=== PATIENT | male | born 1955 | race Caucasian/White ===

== ENCOUNTER → 2020-09-05 10:05 | Outpatient (BNVA) | payer SELFPAY | PROVIDERS: Family Provider Nurse Practitioner Family; PCP Nurse Practitioner Family; Visit Provider Family Medicine | DX: I10 Essential (primary) hypertension (principal); H61.21 Impacted cerumen, right ear; E11.59 Type 2 diabetes mellitus with other circulatory complications; E78.2 Mixed hyperlipidemia; I73.9 Peripheral vascular disease, unspecified; Z72.0 Tobacco use; Z53.20 Procedure and treatment not carried out because of patient's decision for unspecified reasons | CPT/HCPCS: 80053; 80061; 83036 ==

== ENCOUNTER → 2021-03-12 11:06 | Outpatient (BNVA) | payer SELFPAY | PROVIDERS: Family Provider Nurse Practitioner Family; PCP Nurse Practitioner Family; Visit Provider Family Medicine | DX: E11.59 Type 2 diabetes mellitus with other circulatory complications (principal); I10 Essential (primary) hypertension; R60.0 Localized edema; E78.5 Hyperlipidemia, unspecified; M54.42 Lumbago with sciatica, left side; M54.41 Lumbago with sciatica, right side; E78.2 Mixed hyperlipidemia; I50.9 Heart failure, unspecified | CPT/HCPCS: 80048; 83036 ==

== ENCOUNTER → 2021-09-13 10:38 | Outpatient (BNVA) | payer MEDICARE, SELFPAY | PROVIDERS: Family Provider Nurse Practitioner Family; PCP Nurse Practitioner Family; Visit Provider Family Medicine | DX: E78.2 Mixed hyperlipidemia (principal); E11.59 Type 2 diabetes mellitus with other circulatory complications; I10 Essential (primary) hypertension | CPT/HCPCS: 80048; 80061; 83036 ==

== ENCOUNTER → 2022-03-28 09:29 | Outpatient (BNVA) | payer MEDICARE, MEDICAID, SELFPAY | PROVIDERS: Family Provider Nurse Practitioner Family; PCP Family Medicine; Visit Provider Family Medicine | DX: I10 Essential (primary) hypertension (principal); E11.9 Type 2 diabetes mellitus without complications; R60.0 Localized edema; E78.5 Hyperlipidemia, unspecified; J41.0 Simple chronic bronchitis; E11.59 Type 2 diabetes mellitus with other circulatory complications; I50.9 Heart failure, unspecified; Z72.0 Tobacco use; B07.0 Plantar wart; K02.9 Dental caries, unspecified | CPT/HCPCS: 80053; 83036 ==

== ENCOUNTER → 2022-09-18 09:08 | Outpatient (BNVA) | payer MEDICARE, MEDICAID, SELFPAY | PROVIDERS: Family Provider Nurse Practitioner Family; PCP Family Medicine; Visit Provider Family Medicine | DX: I10 Essential (primary) hypertension (principal); J41.0 Simple chronic bronchitis; R60.0 Localized edema; E78.5 Hyperlipidemia, unspecified; E11.9 Type 2 diabetes mellitus without complications; E78.2 Mixed hyperlipidemia; E11.59 Type 2 diabetes mellitus with other circulatory complications; I50.9 Heart failure, unspecified; Z72.0 Tobacco use | CPT/HCPCS: 80053; 80061; 83036 ==

== ENCOUNTER → 2023-03-18 10:05 | Outpatient (BNVA) | payer MEDICARE, MEDICAID, SELFPAY | PROVIDERS: Family Provider Nurse Practitioner Family; PCP Family Medicine; Visit Provider Family Medicine | DX: I10 Essential (primary) hypertension (principal); J41.0 Simple chronic bronchitis; E78.5 Hyperlipidemia, unspecified; R60.0 Localized edema; E11.9 Type 2 diabetes mellitus without complications; E11.59 Type 2 diabetes mellitus with other circulatory complications; I50.9 Heart failure, unspecified; E78.2 Mixed hyperlipidemia; Z53.20 Procedure and treatment not carried out because of patient's decision for unspecified reasons | CPT/HCPCS: 80053; 83036 ==

== ENCOUNTER → 2023-09-16 10:09 | Outpatient (BNVA) | payer OTHER, MEDICAID, SELFPAY | PROVIDERS: Family Provider Nurse Practitioner Family; PCP Family Medicine; Visit Provider Family Medicine | DX: I10 Essential (primary) hypertension (principal); J41.0 Simple chronic bronchitis; E11.9 Type 2 diabetes mellitus without complications; E78.5 Hyperlipidemia, unspecified; I50.9 Heart failure, unspecified; E11.59 Type 2 diabetes mellitus with other circulatory complications; J44.9 Chronic obstructive pulmonary disease, unspecified | CPT/HCPCS: 80053; 80061; 83036; 85025 ==

== ENCOUNTER 2023-09-22 06:45 | Outpatient (CLI) | payer MEDICARE, MEDICAID, SELFPAY ==
--- NOTE | 2023-09-22 07:00 | CT_ITS ---
WS: [id number] CT FACIAL BONES HISTORY: R68.84 - Jaw pain TECHNIQUE: Images obtained from the supraorbital location through the mandible. Soft tissue and bone windows are reviewed. Coronal and sagittal reformats have also been submitted. DLP: 681.[address] scans at [facility] use at least one of these dose optimization techniques: automated e xposure control; mA and/or kV adjustment per patient size (includes targeted exams where dose is matc hed to clinical indication); or iterative reconstruction. COMPARISON: None available. CT of the facial bones was performed without IV contrast. There is a large destructive soft tissue mass centered in the RIGHT pharyngeal mucosal space with ext ension into the RIGHT parapharyngeal space and the RIGHT it infrastructure consultant space. Suspect mass extends to th e prevertebral space also on the RIGHT. Mass extends to the RIGHT it infrastructure consultant space to involve the med ial pterygoid muscle. There is loss of the normal fat planes in the parapharyngeal space and the toru s tubarius. Mass extends across the midline of the nasopharynx and into the RIGHT pterygopalatine fos sa. There is osseous destruction of the RIGHT pterygoid plates and the posterior RIGHT maxillary sinu s. There is soft tissue extension into the posterior RIGHT maxillary sinus. Soft tissue tumor extends along the RIGHT eustachian tube to the middle ear. There is increased soft tissue extensively throug hout the RIGHT mastoid air cells and extending into the inner ear surrounding the ossicles. Tegmen ty mpani appears still intact. There is osseous destruction involving several bones in the RIGHT skull base including the posterior wall of the maxillary sinus, the pterygoid plates and possibly the chino of the RIGHT carotid canal. Abnormal clivus. As per history there has been a recent tooth extraction. There is a small amount of air adjacent to t he RIGHT mandible at the site of the tooth extraction. There is mild osteolysis of the RIGHT mandible which is probably from dental caries. There is extensive dental caries in the maxilla, greater on th e LEFT. There is a focal collection of air on the LEFT which may be the site of the recent tooth extr action. There is loss of bone in the mandible and maxilla. There is extensive, near contiguous dense calcification along the cervical carotid arteries. Dense at herosclerotic plaque continues into the carotid cavernous sinuses and the supraclinoid carotid arteri es. IMPRESSION: 1. Large destructive soft tissue process centered in the RIGHT [place] tonsillar bed. Mass extensiv corey throughout the RIGHT parapharyngeal space extending into the it infrastructure consultant space and probably the ca rotid space. Mass extends into the RIGHT eustachian tube at the RIGHT pterygopalatine fossa. This celsa dy was performed without IV contrast. Favor neoplasm as a possible etiology. Obviously infection is n ot excluded. 2. There is significant osseous destruction involving the posterior wall of the RIGHT maxillary sinu s, pterygoid plates, the clivus and probably the carotid canal. 3. Extensive bilateral dental caries greatest involving the LEFT maxilla. 4. Severe diffuse carotid atherosclerosis. Notified Danielle Maldonado MD at 09/22/2023 8:[address] Maldonado is not in the office. I did leave a me ssage for this report to be reviewed by the nurse practitioner, Marivel Hopkins. Patient needs to be evaluated by ENT. Neck CT with IV contrast would also be beneficial to evaluate extent of disease and possibly differentiate neoplasm versus infection and for adenopathy.
== END 2023-09-22 06:46 | disposition home or self-care (01) ==
LOC: RAD 06:49
PROVIDERS: Family Provider Nurse Practitioner Family; PCP Family Medicine; Visit Provider Family Medicine
DX: R93.89 Abnormal findings on diagnostic imaging of other specified body structures (principal); R93.0 Abnormal findings on diagnostic imaging of skull and head, not elsewhere classified; R68.84 Jaw pain; K08.89 Other specified disorders of teeth and supporting structures; M89.8X8 Other specified disorders of bone, other site; K02.9 Dental caries, unspecified
CPT/HCPCS: 70486

== ENCOUNTER 2023-09-24 16:19 | Emergency (ER) | payer MEDICARE, MEDICAID, SELFPAY ==
[2023-09-24 16:43] VITALS: BP 102/65; PULSE 109; RESP 18; TEMP 36.6; O2SAT 100
--- NOTE | 2023-09-24 19:24 | W.ED.GENADLT ---
HPI - General Adult General: Chief complaint: Eye Problems Stated complaint: headache Time Seen by Provider: 09/24/23 19:15 History of Present Illness: Patient presents to the ER with complaints of cheek pain and double vision. Patient is also states in the last month he has had dental pain in all of his upper teeth pulled, chronic headache and right ear pain that has not went away. Patient saw his PCP and ordered noncontrasted CT scan that he had done. He does not know the results. Patient says he just keeps on getting worse. Review of Systems General: Reports: 10 or more systems reviewed and unremarkable except in HPI and below PFSH ED PFSH: Medical History (Updated 10/02/23 @ 00:01 by NABIL Handy) Hypertension Hyperlipidemia Refuses statin therapy. COPD (chronic obstructive pulmonary disease) Type 2 diabetes mellitus Surgical History (Updated 09/29/23 @ 11:49 by Jimmie Loera MD) History of dental surgery No pertinent past surgical history Family History Father CAD (coronary artery disease) Chronic kidney disease (CKD) Diabetes Mother Hypertension Stroke Heart attack Cancer breast Brother Cancer Both brothers have passed from cancer Social History Smoking and tobacco/nicotine status: current every day tobacco/nicotine user cigarettes Packs smoked per day: 2 Quit status (tobacco/nicotine): considering quitting Alcohol intake: current Alcohol intake frequency: 0-2 Drinks per Day Alcohol type: beer Substance/Drug Use: never Physical Exam Const: COMMON NORMALS: no acute distress, average body habitus, patient oriented x3, no limitations, healthy appearing, alert and well nourished HENMT: COMMON NORMALS: normocephalic, atraumatic, hearing grossly normal bilaterally, external ears normal, Normal external nose present, moist oral mucous membranes and oropharynx normal HEAD & SCALP: normocephalic and atraumatic NOSE: Normal external nose present EXTERNAL EAR: Yes external ears normal Neck/C-Spine: COMMON NORMALS: no JVD Chest: COMMONS NORMALS: normal inspection of the chest and normal palpation of entire chest wall Resp: COMMON NORMALS: normal respiratory effort, No retractions, No use of accessory muscles and clear to auscultation bilaterally AUSCULTATION: clear to auscultation bilaterally Cardio: COMMON NORMALS: no JVD, regular rate, regular rhythm, S1 normal heart sound present, S2 normal heart sound present, No gallops present (Cardio), No clicks present (Cardio), No murmurs present (Cardio) and No rub (Cardio) RATE: regular rate RHYTHM: regular rhythm HEART SOUNDS: S1 normal heart sound present and S2 normal heart sound present GI: COMMON NORMALS: Normal to inspection, nondistended, normoactive bowel sounds present, Soft to palpation, non-tender, No hepatosplenomegaly present and no masses PALPATION: Yes Soft to palpation and Yes No hepatosplenomegaly present Neuro: COMMON NORMALS: patient oriented x3 SENSORIUM/ORIENTATION: Yes alert Course Vital Signs: Vital signs: Vital Signs Temperature 97.8 F 09/24/23 22:11 Pulse Rate 91 09/24/23 22:11 Respiratory Rate 16 09/24/23 22:11 Blood Pressure 104/72 09/24/23 22:11 Pulse Oximetry 99 09/24/23 22:11 Oxygen Delivery Me thod Room Air 09/24/23 22:05 MDM - General Adult Medical Decision Making Lab work was obtained as well as a facial CT with contrast. Showed an aggressive infiltrative tumor. These results was discussed with the patient. Neurosurgery Dr. Jeronimo was consulted who looked at the images to the cloud he says it is probably an aggressive benign tumor and does not need transferred at this moment but he will have him see Dr. Oakes and arrange for an MRI. The number is [phone] we will give this number to the patient and have him call but Dr. Jeronimo said he is going to try to arrange it himself. She will be discharged home Lab Data 09/24/23 19:26 09/24/23 19:[address] 09/24/23 19:25 IMPRESSION: 1. 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 MRI of the face/neck with/without contrast and neurosurgical evaluation is recommended. 2. Mild right-sided proptosis. 3. Effacement of the right mastoid air cells and middle ear secondary to obstruction of the eustachian tube. 4. Developmentally diminutive right internal jugular vein with a short segment of absence of opacification just proximal to the jugular foramen. No definitive evidence of thrombosis, though evaluation of which at time of MRI is recommended. The findings were verbally communicated by telephone with Dr. Tang at 8:50 PM CDT on 09/24/2023. Laboratory Results WBC 10.97 10^3/uL (3.29-11.43) 09/24/23 19: RBC 4.50 10^6/uL (3.85-5.65) 09/24/23 19: Hgb 14.00 g/dL (11.27-16.99) 09/24/23 19: Hct 40.7 % (37-53) 09/24/23: MCV 90.4 fl (82-101) 09/24/23: MCH 31.1 pg (27-33) 09/24/23: MCHC 34.4 g/dL (30-55) 09/24/23: RDW 13.1 % (12.1-15.1) 09/24/23: Plt Count 288 10^3/cmm (157-399) 09/24/23: MPV 9.0 fL (7.4-10.4) 09/24/23: Neut % (Auto) 80.6 % 09/24/23: Lymph % (Auto) 10.7 % 09/24/23: [place] % (Auto) 7.5 % 09/24/23: Eos % (Auto) 0.2 % 09/24/23: Baso % (Auto) 0.5 % 09/24/23: Neut # (Auto) 8.85 10^3/uL (1.8-7.7) H 09/24/23: Lymph # (Auto) 1.2 10^3/uL (0.8-4.8) 09/24/23: [place] # (Auto) 0.8 10^3/uL (0.2-0.9) 09/24/23 19: Eos # (Auto) 0.0 10^3/uL (0.0-0.8) 09/24/23: Baso # (Auto) 0.1 10^3/uL (0.0-0.1) 09/24/23 19:26 Nucleated RBC % (auto) 0 % 09/24/23 19:26 Nucleated RBCs # 0.0 /100WBC 09/24/23 19:26 Sodium 131 mmol/L (136-145) L 09/24/23 19:26 Potassium 4.5 mmol/L (3.5-5.1) 09/24/23 19:26 Chloride 91 mmol/L (98-107) L 09/24/23 19:26 Carbon Dioxide 27 mmol/L (22-29) 09/24/23 19:26 Anion Gap 17.5 (5-19) 09/24/23 19:26 BUN 9 mg/dL (8-23) 09/24/23 19:26 Creatinine 0.8 mg/dL (0.7-1.2) 09/24/23 19:26 GFR Calculation 96.4 mL/min (90-130) 09/24/23 19:26 Glucose 170 mg/dL (65-115) H 09/24/23 19:26 Calculated Osmolality 275 mOsm/kg (285-295) L 09/24/23 19:26 Calcium 9.7 mg/dL (8.5-10.5) 09/24/23 19:26 Total Bilirubin 0.5 mg/dL (0.15-1.2) 09/24/23 19:26 AST 9 U/L (0-40) 09/24/23 19:26 ALT 9 U/L (0-41) 09/24/23 19:26 Alkaline Phosphatase 86 U/L (40-130) 09/24/23 19:26 Total Protein 6.9 g/dL (6.6-8.7) 09/24/23 19:26 Albumin 4.0 g/dL (3.5-5.2) 09/24/23 19:26 Globulin 2.9 g/dL (1.3-4.6) 09/24/23 19:26 All radiology interpretation(s) finalized by discharge Discharge Plan Discharge Patient Disposition: Home Clinical Impression: Facial mass, Ocular proptosis, Headache Condition: Stable Prescriptions: No Action hydralazine 10 mg tablet 10 mg PO BID PRN (Reason: very high blood pressure) Qty: 20 0RF Rx Instructions: >160/>100 for after 15 minutes rest aspirin 325 mg tablet 325 mg PO DAILY amlodipine 10 mg tablet 10 mg PO DAILY 90 Days Qty: 90 1RF albuterol sulfate [ProAir HFA] 90 mcg/actuation HFA aerosol inhaler 2 puff inhalation QID PRN (Reason: shortness of breath or wheezing) 30 Days Qty: 18 5RF clonidine HCl 0.1 mg tablet 0.1 mg PO BID 90 Days Qty: 180 1RF furosemide 20 mg tablet 20 mg PO DAILY 90 Days Qty: 90 1RF metformin 1,000 mg tablet 1,000 mg PO BID 90 Days Qty: 180 1RF telmisartan 80 mg tablet 80 mg PO DAILY 90 Days Qty: 90 1RF spironolactone 25 mg tablet 50 mg PO DAILY 90 Days Qty: 180 1RF metoprolol tartrate 50 mg tablet 25 mg PO BID 90 Days Qty: 90 1RF fenofibrate nanocrystallized 48 mg tablet 48 mg PO DAILY 90 Days Qty: 90 1RF amitriptyline 25 mg tablet 25 mg PO .at bedtime 30 Days Qty: 30 2RF Ensure Complete 0.1 gram- 1.18 kcal/mL liquid 1 ea PO DAILY 30 Days Qty: 8880 11RF Rx Instructions: 1 can/bottle daily may change per insurance brand/type fluticasone propionate 50 mcg/actuation spray,suspension 1 spray intranasal DAILY PRN (Reason: allergy symptoms) Qty: 16 1RF Rx Instructions: administer into each nostril Discharge Orders: Discharge ED (Routine); Ordered 09/24/23 Ordered By: Enrrique Tang Referrals: Danielle Maldonado MD [Primary Care Provider] - Patient Instructions: Acute Headache (DC), Diplopia (ED) Activity Restrictions/Additional Instructions: Neurosurgeon at [facility] Dr. Jeronimo was consulted and he looked at your images through the computer system. His office will be calling you tomorrow to arrange an appointment for an MRI and to see a Dr. Oakes. If you have not heard from them later on the day please call them their number is area code [phone]. Coding Level of Care Code ED [employer] for [facility] [employer]
--- NOTE | 2023-09-24 19:25 | CTR_ITS ---
PROCEDURE INFORMATION: Exam: CT Maxillofacial With Contrast Exam date and time: 09/24/2023 8:00 PM Age: 68 years old Clinical indication: Face pain and other: Diplopia; Prior surgery; Surgery date: <1 month; Surgery type: Teeth pulled on right side; Additional info: Diplopia, right sided facial mass, abnormal CT TECHNIQUE: Imaging protocol: Computed tomography of the face with contrast. Radiation optimization: All CT scans at this facility use at least one of these dose optimization techniques: automated exposure control; mA and/or kV adjustment per patient size (includes targeted exams where dose is matched to clinical indication); or iterative reconstruction. Contrast material: OMNI 350; Contrast volume: 100 ml; Contrast route: INTRAVENOUS (IV); COMPARISON: CT facial bones wo con* [id number] 09/22/2023 6:06 AM RADIATION DOSE METRICS: Total DLP (mGy-cm): 714.64 FINDINGS: Soft tissues: Large infiltrative mass centered in the fossa Rosenmuller on the right with extension inferiorly into the region of the palatine tonsil and medial pterygoid muscle as well as superiorly into the region of the pterygoid plates, pterygopalatine fossa, carotid and hypoglossal canals. There is extension through the foramen ovale as well. There are destructive permeative changes of the skull base in this region including the body of the sphenoid, posterior wall of the right maxillary sinus, right-sided pterygoid plates and right lateral aspect of the basisphenoid. There appears to be extension into the posterior ethmoid air cells on the right as well. There is partial effacement of the nasopharynx. There is destruction of the inferior chino of the sphenoid sinuses with extension of mass into the sinuses as well as the posterior right maxillary sinus. There is extension into the right carotid canal and cavernous sinus (for example, image 61 of series 3). Orbital cavities: Bony orbits are intact. There is mild right-sided proptosis. The intraconal/extraconal fat, extraocular muscles and optic nerves are grossly unremarkable. Mastoid air cells: Effacement of the right mastoid air cells and middle ear secondary to obstruction of the eustachian tube. Lymph nodes: No evidence of adenopathy. Vasculature: The visualized carotid and vertebral arteries are patent. There is severe narrowing of the right cavernous internal carotid artery, possibly secondary to atherosclerotic plaque though involvement by the infiltrative mass is difficult to exclude. The vessels of the [id number]-[id number] are grossly patent. (image 66 of series 3). A extensive densely calcified atherosclerotic plaque of the carotid bulbs and proximal internal carotid arteries. There is approximately 60% narrowing of the proximal left internal carotid artery and 40% narrowing of the proximal left internal carotid artery. The visualized internal jugular veins grossly patent. The right internal jugular vein is developmentally diminutive and narrowed as it courses into the jugular foramen. No definitive evidence of thrombosis, though there is a short segment of absent opacification just proximal to the jugular foramen. CT/CT facial bones w con [id number] IMPRESSION: 1. 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 MRI of the face/neck with/without contrast and neurosurgical evaluation is recommended. 2. Mild right-sided proptosis. 3. Effacement of the right mastoid air cells and middle ear secondary to obstruction of the eustachian tube. 4. Developmentally diminutive right internal jugular vein with a short segment of absence of opacification just proximal to the jugular foramen. No definitive evidence of thrombosis, though evaluation of which at time of MRI is recommended. The findings were verbally communicated by telephone with Dr. Tang at 8:50 PM CDT on 09/24/2023.
[2023-09-24 19:36] LABS: Basophils # 0.1 10^3/uL (0.0-0.1); Basophils % 0.5 %; Eosinophils % 0.2 %; Hematocrit 40.7 % (37-53); Lymphocytes # 1.2 10^3/uL (0.8-4.8); Lymphocytes % 10.7 %; Mean Corpuscular HGB Conc 34.4 g/dL (30-55); Mean Corpuscular Hemoglobin 31.1 pg (27-33); Mean Corpuscular Volume 90.4 fl (82-101); Monocytes # 0.8 10^3/uL (0.2-0.9); Monocytes % 7.5 %; Neutrophils # 8.85 10^3/uL (1.8-7.7); Neutrophils % 80.6 %; Nucleated Red Blood Cells % 0 %; Platelet Count 288 10^3/cmm (157-399); Red Cell Distribution Width 13.1 % (12.1-15.1); White Blood Count 10.97 10^3/uL (3.29-11.43)
[2023-09-24] MEDS: metoclopramide 5 mg/mL SDV 2 mL 10 MG IVP (19:39)
[2023-09-24] MEDS: ondansetron 2 mg/ML SDV 2 mL 8 MG IVP (19:39)
[2023-09-24 19:52] LABS: Alanine Aminotransferase 9 U/L (0-41); Alkaline Phosphatase 86 U/L (40-130); Anion Gap 17.5 (5-19); Aspartate Amino Transferase 9 U/L (0-40); Blood Urea Nitrogen 9 mg/dL (8-23); Calcium 9.7 mg/dL (8.5-10.5); Carbon Dioxide 27 mmol/L (22-29); Chloride 91 mmol/L (98-107); Creatinine Clr Calc Pharmacy 88.9434; Globulin 2.9 g/dL (1.3-4.6); Glomerular Filtration Rate 96.4 mL/min (90-130); Glucose 170 mg/dL (65-115); Osmolality Calculated 275 mOsm/kg (285-295); Potassium 4.5 mmol/L (3.5-5.1); Sodium 131 mmol/L (136-145); Total Bilirubin 0.5 mg/dL (0.15-1.2); Total Protein 6.9 g/dL (6.6-8.7)
[2023-09-24] MEDS: iohexol 350 mg/mL 500 mL Btl (per mL) IV (20:06)
[2023-09-24 20:11] VITALS: PULSE 92; RESP 16; O2SAT 96
[2023-09-24 20:30] VITALS: BP 105/68; PULSE 94; RESP 16; O2SAT 98
[2023-09-24 22:05] VITALS: BP 104/72; PULSE 91; RESP 16; O2SAT 99
[2023-09-24] MEDS: ondansetron 2 mg/ML SDV 2 mL 4 MG IVP (22:07)
[2023-09-24] MEDS: morphine 4 mg/mL SDV 1 mL IVP (22:07)
[2023-09-24 22:11] VITALS: BP 104/72; PULSE 91; RESP 16; TEMP 36.6; O2SAT 99
== END 2023-09-24 22:12 | disposition home or self-care (01) ==
PROVIDERS: Emergency Provider Emergency Medicine; PCP Family Medicine
DX: R22.0 Localized swelling, mass and lump, head (principal); H05.20 Unspecified exophthalmos; R51.9 Headache, unspecified; Z79.82 Long term (current) use of aspirin; Z79.84 Long term (current) use of oral hypoglycemic drugs; I10 Essential (primary) hypertension; E78.5 Hyperlipidemia, unspecified; J44.9 Chronic obstructive pulmonary disease, unspecified; E11.9 Type 2 diabetes mellitus without complications; F17.210 Nicotine dependence, cigarettes, uncomplicated
CPT/HCPCS: 70487; 80053; 85025; 96374; 96375; 96376; 99285; J2270; J2405; J2765; Q9967

== ENCOUNTER → 2023-09-29 10:49 | Outpatient (BNVA) | payer MEDICARE, MEDICAID, SELFPAY | PROVIDERS: PCP Family Medicine; Visit Provider Otolaryngology | DX: J39.2 Other diseases of pharynx (principal); H05.20 Unspecified exophthalmos; R51.9 Headache, unspecified; G89.29 Other chronic pain | CPT/HCPCS: 99205 ==

== ENCOUNTER 2023-11-10 10:52 | Oncology outpatient (recurring) (ONCR) | payer MEDICARE, MEDICAID, SELFPAY ==
--- NOTE | 2023-10-22 15:16 | N.ONRAD NP_ITS ---
Radiation Oncology New Patient Visit Patient: Romain Montes MR#: [id number] : 1955 Age: 68 Sex: Male Dictated by: Dr. 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 He recounts how in May he began to have headaches on the right side of his head and in the jaw area. He said he felt like his teeth were hurting on the upper part. He visited with his dentist and his dentist felt that he had an actual infection in the teeth. He had the teeth pulled and dentures made but this did not result in any improvement in his pain. By mid August he was having some trouble with ill fitting dentures and some swallowing. He noticed he had a decrease in his sense of smell and increased congestion. Scans at that point in time showed a mass in the right Pharyngeal space which extended in the right director dental services and pterygoids as well as palatine fossa Meckel's cave and cavernous sinus. Is also noted to have right-sided neck node involved on the PET scan. Current Medications: Albuterol, amitriptyline, amlodipine, apixaban, aspirin, clonidine, fenofibrate, fluconazole, food supplement lactose reduced, Lasix, hydralazine, metformin, metoprolol, oxycodone, spironolactone, telmisartan Allergies: No Known Allergies Medical History: Tobacco use, diabetes, hypertension, congestive heart failure no history of collagen vascular disease hyperlipidemia. No previous radiation therapy. Surgical History: Teeth pulled on the upper maxillary on the right Family History: Mother had breast cancer. Both of his brothers have had cancer and have from their cancer Social History: Currently smokes 2 packs a day. Drinks daily beer Current Complaints / Review of Systems: . Currently has headache and pressure on the right side of his face Vital Signs: Performed on 10/22/2023 2:16 PM BMI - 22.476 kg/m2, Height - 69 in, Weight - 152.2 lbs, Temperature - 97.3 f, Pulse - 90 /min, Respiration - 18 /min, O2 Sat - 99 %, Pain - 0, Fatigue - 4 and BP - 147/ 78 mm(hg)(high/). Physical Exam: General patient is in no apparent distress today he is accompanied by his HEENT normocephalic atraumatic. Pupils appear to be equal at this time. His right eyelid does droop in comparison to the left. He has numbness across his right cheek. The right eye appears to be sunken in comparison to the left. His neck is supple without palpable cervical or supraclavicular adenopathy. His oral cavity did not reveal any lesions or ulcerations or thrush. Pulmonary: Respiratory rate is regular nonlabored Cardiovascular: Regular rate and rhythm Abdomen: Flat and nontender Extremities: No lower or upper extremity edema is noted Skin: Warm and dry without lesions or ulcerations Neurological: Jhoan syndrome noted as above. Alert and orient x 3. Patient is in a wheelchair but his gait is normal. He is in a wheelchair because of significant fatigue. Speech is intact Psych: Affect appropriate for current situation Performance Status: 80 Pathology: Squamous of carcinoma of the nasopharynx p16 positive Lab: Imaging: See HPI Impression: Stage T4 N1 squamous of carcinoma of the nasopharynx on the right Plan: At this time he has met with several physicians in [place]. He was referred here to discuss the radiation portion of his treatment. He is due to be seen by medical oncology in [place]. We talked about the typical course of combined modality therapy with weekly chemotherapy along with 7 weeks of radiation. We discussed the simulation process. I reviewed the daily treatment regiment. We discussed the risks and side effects both acute and long-term. At this point he still does not have an appointment to visit with the medical oncologist. Will have him return for simulation Friday of next week and should be ready to begin his treatments by Friday or next week. Will wait to hear from him or his in terms of his appointment in [place]. At this point all of their questions were answered and he was anxious to begin his treatments. Signed by: 10/22/2023 3:14:34 PM <<Signature on File>> Time spent with patient:60 Cc: Naila Edwards MD CPT Code: CPT Code:
--- NOTE | 2023-10-27 14:28 | ONCRAD EPV_ITS ---
Radiation Oncology Established Patient Visit Patient: Jyoti Hoyos [id number] : 1955> Age: 68> Sex: Male> Dictated by: Dr. Twyla Ang Date of Service: 10/27/2023 Referring Physician(s) : Diagnosis: C11.8 - Malignant neoplasm of overlapping sites of nasopharynx, Diagnosed 10/22/2023 (Active) Radiotherapy to Date: Simulation today Current History: Current Medications: Allergies: No Known Allergies Current Complaints / Review of Systems: . Patient's said he seemed like he was having more pain and she took him to the walk-in clinic. She has been giving him to Tylenol every 6 hours and an oxycodone every 6 hours as well. She is keeping a very good schedule on when she is giving him his medication. The walk-in clinic physician gave him a muscle relaxer which she has been giving to him 4 times a day. Since he started the muscle relaxer he has become less responsive and has gotten to where he really is unable to do much. She initially thought she was going have to put him in a group home. Vital Signs: Performed on 10/27/2023 2:11 PM BMI - 22.447 kg/m2, Height - 69 in, Weight - 152 lbs, Temperature - 97.3 f, Pulse - 92 /min, Respiration - 18 /min, O2 Sat - 96 %, Pain - 8, Fatigue - 0 and BP - 131/ 82 mm(hg). Physical Exam: General patient is basically asleep NEUROLOGIC: Continues to have numbness over the right side of his face. His right eye is slightly inferior and the eyelid is drooping. His sclera has become injected. Performance Status: 80 Lab: None pending. Pathology: Primary, c11.8 - malignant neoplasm of overlapping sites of nasopharynx, Diagnosed 10/22/2023 (active) . Imaging: See HPI Impression: Squamous cell carcinoma of the nasopharynx. Plan: I reviewed with her that his symptoms seem to have started or worsened when she started the muscle relaxer. I have asked him to discontinue this for now. I told her that I did not think it would add anything to his care or make him feel any better. We will go ahead and do the simulation today. He is anxious to get started as am I. Once we get his simulation done we will proceed with starting his treatment sometime this week. The cancer center in [place] is still trying to get additional medical records before they will even agree to see him. At this point with the delay that he has had and starting his treatment I do not feel like it is in his best interest to delay his treatment anymore waiting for chemotherapy to start. Will begin his treatments as soon as possible and try and get his disease under control and he can begin his chemotherapy next week or the week after Signed by: 10/27/2023 2:27:00 PM <<Signature on File>> Time spent with patient: CPT Code: CPT Code:
--- NOTE | 2023-11-03 15:13 | ONCRAD TMN_ITS ---
Radiation Oncology Weekly Treatment Management Patient: Romain Montes MR#: [id number] : 1955 Attending Physician: Dr. 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 ID: [id number], Energy: 6X, Dose/Fx (cGy): 200, #Fx: 2 35, Dose Correction (cGy): 0, Total Dose Delivered (cGy): 400, Start Date: 10/30/2023, Elapsed Days: 1 Reason for visit: The patient is being seen today as part of their regularly scheduled weekly on treatment visits to assess for acute toxicities from radiotherapy. Review of Systems: Patient has noticed no improvement after the first 2 treatments. His eyelid is now completely closed. He says that side of his face feels like cardboard. Vital Signs: Performed on 11/03/2023 2:34 PM BMI - 21.856 kg/m2, Height - 69 in, Weight - 148 lbs, Temperature - 97.6 f, Pulse - 88 /min, Respiration - 18 /min, O2 Sat - 98 %, Pain - 0, Fatigue - 5 and BP - 116/ 72 mm(hg). Physical Exam: On exam his skin is without changes. The right eyelid is closed. You can manually open it. The globe itself is quite injected. Imaging: Radiation therapy imaging related to accurate target localization (i.e. KV, MV and CBCT) was reviewed. Appropriate changes, if any, were made to ensure treatment accuracy. Plan: Will continue with his treatments as planned. He is going to [place] tomorrow after his radiation to undergo the initial consultation for medical oncology. Signed by: Dr. Twyla Ang 11/03/2023 3:12:31 PM
== END 2023-11-10 23:59 | disposition home or self-care (01) ==
PROVIDERS: PCP Family Medicine; Visit Provider Radiology Radiation Oncology
DX: Z51.0 Encounter for antineoplastic radiation therapy (principal); C11.8 Malignant neoplasm of overlapping sites of nasopharynx; F17.210 Nicotine dependence, cigarettes, uncomplicated
CPT/HCPCS: 77300; 77301; 77334; 77336; 77338; 77386; 77470; 99024; 99205

== ENCOUNTER 2023-11-11 10:31 | Oncology outpatient (recurring) (ONCR) | payer MEDICARE, MEDICAID, SELFPAY | END 2023-11-11 23:59 | disposition home or self-care (01) | PROVIDERS: PCP Family Medicine; Visit Provider Radiology Radiation Oncology | DX: Z51.0 Encounter for antineoplastic radiation therapy (principal); C11.8 Malignant neoplasm of overlapping sites of nasopharynx | CPT/HCPCS: 77386 ==

== ENCOUNTER 2023-12-03 07:49 | Oncology outpatient (recurring) (ONCR) | payer MEDICARE, MEDICAID, SELFPAY ==
--- NOTE | 2023-11-15 23:19 | ONCRAD TMN_ITS ---
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 ID: [id number], Energy: 6X, Dose/Fx (cGy): 200, #Fx: 35, Dose Correction (cGy): 0, Total Dose Delivered (cGy): 1,800, Start Date: 10/30/2023, Elapsed Days: 14 Reason for visit: The patient is being seen today as part of their regularly scheduled weekly on treatment visits to assess for acute toxicities from radiotherapy. Review of Systems: Doing better overall. Drooping eye lids which were present at dx now better. Chemo tolerance compromised by elevated BS to 500 . Now better with switch from Ensure to Gycerna. No pain noted. No N or V. Smoking only 1 cig a day. Previous tooth extractions still causing oral pain. Gargling with salt and soda. Appetite is ok. Vital Signs: Performed on 11/13/2023 11:00 AM BMI - 34.467 kg/m2 (high), Height - 69 in, Weight - 233.4 lbs, Temperature - 96 f, Pulse - 80 /min, Respiration - 16 /min, O2 Sat - 98 %, Pain - 0, Fatigue - 2 and BP - 102/ 65 mm(hg). Physical Exam: Imaging: Radiation therapy imaging related to accurate target localization (i.e. KV, MV and CBCT) was reviewed. Appropriate changes, if any, were made to ensure treatment accuracy. Plan: Good tolerance of treatment. Continue as planned. Signed by: Ronak Love 11/15/2023 11:18:24 PM Telemedicine Consent Patient seen today via Telemedicine by agreement and consent of patient. Telemedicine technology used during the visit include audio and, as available, review of images. This patient encounter is appropriate and reasonable under the circumstances given the patient???s particular presentation at this time. The patient has been advised of the potential risks and limitations of this mode of treatment (including but not limited to the absence of in-person examination) and has agreed to be treated in a remote fashion in spite of them. Any and all of the patient???s/patient???s family???s questions on this issue have been answered and I have made no promises or guarantees to the patient. The patient has also been advised to contact this office for worsening conditions or problems, and seek emergency medical treatment and/or call 911 if the patient deems either necessary.
--- NOTE | 2023-11-18 13:11 | ONCRAD TMN_ITS ---
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 ID: [id number], Energy: 6X, Dose/Fx (cGy): 200, #Fx: 12 / 35, Dose Correction (cGy): 0, Total Dose Delivered (cGy): 2,400, Start Date: 10/30/2023, Elapsed Days: 19 Reason for visit: The patient is being seen today as part of their regularly scheduled weekly on treatment visits to assess for acute toxicities from radiotherapy. Review of Systems: Right eye droop continues to improve. Now able to open eye well. No dizziness despite low BP seen here. Drinking fluids. Eats all food orally. No PEG. Some soreness in mouth. He was on amlodipine, metropolol and telmisartan before but is already off of telmisartan. Vital Signs: Performed on 11/18/2023 11:11 AM BMI - 22.594 kg/m2, Height - 69 in, Weight - 153 lbs, Temperature - 96.6 f, Pulse - 82 /min, Respiration - 16 /min, O2 Sat - 97 %, Pain - 0, Fatigue - 0 and BP - 85/ 56 mm(hg)(low). Imaging: Radiation therapy imaging related to accurate target localization (i.e. KV, MV and CBCT) was reviewed. Appropriate changes, if any, were made to ensure treatment accuracy. Plan: Good tolerance and response to treatment. Will now stop amlodipine Continue treatment as planned. Signed by: Ronak Love 11/18/2023 1:10:04 PM
--- NOTE | 2023-11-25 22:55 | ONCRAD TMN_ITS ---
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 ID: [id number], Energy: 6X, Dose/Fx (cGy): 200, #Fx: 16 / 35, Dose Correction (cGy): 0, Total Dose Delivered (cGy): 3,200, Start Date: 10/30/2023, Elapsed Days: 25 Reason for visit: The patient is being seen today as part of their regularly scheduled weekly on treatment visits to assess for acute toxicities from radiotherapy. Review of Systems: Complains of swelling feet. Port scheduled tommorow Vital Signs: Performed on 11/24/2023 10:51 AM BMI - 22.077 kg/m2, Height - 69 in, Weight - 149.5 lbs, Temperature - 96.5 f, Pulse - 78 /min, Respiration - 18 /min, O2 Sat - 98 %, Pain - 0, Fatigue - 0 and BP - 95/ 60 mm(hg)(/low). Physical Exam: Imaging: Radiation therapy imaging related to accurate target localization (i.e. KV, MV and CBCT) was reviewed. Appropriate changes, if any, were made to ensure treatment accuracy. Plan: Good tolerance of treatment. Advised to keep legs up when ever is feasible. Chemo began with IV. Now port placement. 10 minutes were spend with patients and with cahrting. Signed by: Ronak Love 11/25/2023 10:53:13 PM Telemedicine Consent Patient seen today via Telemedicine by agreement and consent of patient. Telemedicine technology used during the visit include audio and, as available, review of images. This patient encounter is appropriate and reasonable under the circumstances given the patient???s particular presentation at this time. The patient has been advised of the potential risks and limitations of this mode of treatment (including but not limited to the absence of in-person examination) and has agreed to be treated in a remote fashion in spite of them. Any and all of the patient???s/patient???s family???s questions on this issue have been answered and I have made no promises or guarantees to the patient. The patient has also been advised to contact this office for worsening conditions or problems, and seek emergency medical treatment and/or call 911 if the patient deems either necessary.
--- NOTE | 2023-12-02 11:40 | ONCRAD TMN_ITS ---
Radiation Oncology Weekly Treatment Management Patient: Romain Montes MR#: [id number] : 1955 Attending Physician: Dr. 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 ID: [id number], Energy: 6X, Dose/Fx (cGy): 200, #Fx: , Dose Correction (cGy): 0, Total Dose Delivered (cGy): 4,200, Start Date: 10/30/2023, Elapsed Days: 33 Reason for visit: The patient is being seen today as part of their regularly scheduled weekly on treatment visits to assess for acute toxicities from radiotherapy. Review of Systems: Patient actually is feeling somewhat better. His eye and vision has improved. He is not eating very well as he has a decrease in his appetite. His is trying to give him softer foods but unfortunately a lot of the ones that would be beneficial because his blood sugar to elevate. He is also having problems with his blood sugar elevating for 2 to 3 days after his chemotherapy Vital Signs: Performed on 12/02/2023 10:56 AM BMI - 21.561 kg/m2, Height - 69 in, Weight - 146 lbs, Temperature - 96.8 f, Pulse - 89 /min, Respiration - 18 /min, O2 Sat - 100 %, Pain - 0, Fatigue - 0 and BP - 99/ 64 mm(hg)(/low). Physical Exam: No changes on his skin. His eye lid seems to be a little bit more elevated. Imaging: Radiation therapy imaging related to accurate target localization (i.e. KV, MV and CBCT) was reviewed. Appropriate changes, if any, were made to ensure treatment accuracy. Plan: Will continue with his treatments as planned. He will get his chemotherapy and [place] tomorrow. Signed by: Dr. Twyla Ang 12/02/2023 11:38:23 AM
== END 2023-12-03 23:59 | disposition home or self-care (01) ==
PROVIDERS: PCP Family Medicine; Visit Provider Radiology Radiation Oncology
DX: Z51.0 Encounter for antineoplastic radiation therapy (principal); C11.8 Malignant neoplasm of overlapping sites of nasopharynx
CPT/HCPCS: 77336; 77386; 99024

== ENCOUNTER 2023-12-12 11:00 | Oncology outpatient (recurring) (ONCR) | payer MEDICARE, MEDICAID, SELFPAY ==
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
[2023-12-12 12:17] LABS: Anion Gap 20.4 (5-19); Blood Urea Nitrogen 43 mg/dL (8-23); Calcium 8.3 mg/dL (8.5-10.5); Carbon Dioxide 22 mmol/L (22-29); Chloride 89 mmol/L (98-107); Glomerular Filtration Rate 37.8 mL/min (90-130); Glucose 144 mg/dL (65-115); Osmolality Calculated 275 mOsm/kg (285-295); Potassium 5.4 mmol/L (3.5-5.1); Sodium 126 mmol/L (136-145)
== END 2023-12-12 23:59 | disposition home or self-care (01) ==
PROVIDERS: PCP Family Medicine; Visit Provider Radiology Radiation Oncology
DX: Z53.9 Procedure and treatment not carried out, unspecified reason (principal); Z51.0 Encounter for antineoplastic radiation therapy; C11.8 Malignant neoplasm of overlapping sites of nasopharynx; I50.9 Heart failure, unspecified
CPT/HCPCS: 36591; 77336; 77386; 80048; 99024

== ENCOUNTER 2023-12-23 10:46 | Oncology outpatient (recurring) (ONCR) | payer MEDICARE, MEDICAID, SELFPAY ==
--- NOTE | 2023-12-16 11:30 | ONCRAD TMN_ITS ---
Radiation Oncology Weekly Treatment Management Patient: Romain Montes MR#: [id number] : 1955 Attending Physician: Dr. 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 ID: [id number], Energy: 6X, Dose/Fx (cGy): 200, #Fx: 30 / 35, Dose Correction (cGy): 0, Total Dose Delivered (cGy): 6,000, Start Date: 10/30/2023, Elapsed Days: 47 Reason for visit: The patient is being seen today as part of their regularly scheduled weekly on treatment visits to assess for acute toxicities from radiotherapy. Review of Systems: Last week apparently his sodium was low. He had it repeated yesterday at his primary care's office and is slated to possibly go to the emergency room in [place] if it is low again today. Otherwise he is has a sore throat and is now switched to softer foods. He also has considerable fatigue. He has no obvious skin changes. He continues to have a greenish discharge now from both eyes. Vital Signs: Performed on 12/16/2023 10:59 AM BMI - 20.734 kg/m2, Height - 69 in, Weight - 140.4 lbs, Temperature - 96.1 f, Pulse - 80 /min, Respiration - 18 /min, O2 Sat - 99 %, Pain - 0, Fatigue - 5 and BP - 80/ 55 mm(hg)(low). Physical Exam: On exam his skin is without changes. The right eye remains closed. Imaging: Radiation therapy imaging related to accurate target localization (i.e. KV, MV and CBCT) was reviewed. Appropriate changes, if any, were made to ensure treatment accuracy. Plan: Will continue with his treatments. I encouraged his to make sure that he does not end up in the hospital for prolonged period of time as he only has 5 treatments remaining. Would like to get those completed and it may be possible for her to have him to have his hyponatremia cared for here locally. I will go ahead and send prescription antibiotic drops for his eyes. Signed by: Dr. Twyla Ang 12/16/2023 11:29:37 AM
--- NOTE | 2023-12-23 11:40 | N.ONRD TS_ITS ---
Radiation Oncology Treatment Summary Patient: Romain Montes MR#: [id number] : 1955 Age: 68 Sex: Male Dictated by: Dr. 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 ID: [id number], Energy: 6X, Dose/Fx (cGy): 200, #Fx: 35 / 35, Dose Correction (cGy): 0, Total Dose Delivered (cGy): 7,000, Start Date: 10/30/2023, End Date: 12/23/2023, Elapsed Days: 54 Clinical Summary: The patient tolerated RT. he was able to complete his treatment without any breaks. He did miss the last 2 rounds of his chemotherapy secondary to kidney issues and he is scheduled to visit with a workforce specialist to review the results of his echo from last week. He has had quite a bit of difficulty with bedsores and lower extremity edema. I reminded him that he has been malnourished and has not been able to move much. We talked about getting off of his bedsores and trying to use his walker more. His eye today is nicely open. And he can see out of it again. I will schedule a CT in 6 weeks with a follow-up after. Plan: End of treatment today. Continue on the above medication until the skin reaction resolves. Follow up in one month. Signed by: Dr. Twyla Ang>12/23/2023 11:38:07 AM <<Signature on File>>
== END 2024-01-11 23:59 | disposition home or self-care (01) ==
PROVIDERS: PCP Family Medicine; Visit Provider Radiology Radiation Oncology
DX: Z51.0 Encounter for antineoplastic radiation therapy (principal); C11.8 Malignant neoplasm of overlapping sites of nasopharynx; E87.1 Hypo-osmolality and hyponatremia
CPT/HCPCS: 77336; 77386; 80048; 97597; 97598; 99024; 99213; A6252

== ENCOUNTER → 2023-12-24 08:46 | Outpatient (BNVA) | payer MEDICARE, MEDICAID, SELFPAY | PROVIDERS: PCP Family Medicine; Visit Provider Thoracic Surgery (Cardiothoracic Vascular Surgery) | DX: I96 Gangrene, not elsewhere classified (principal); L97.511 Non-pressure chronic ulcer of other part of right foot limited to breakdown of skin; L89.152 Pressure ulcer of sacral region, stage 2; L97.821 Non-pressure chronic ulcer of other part of left lower leg limited to breakdown of skin | CPT/HCPCS: 97597; 97598 ==

== ENCOUNTER → 2023-12-31 12:57 | Outpatient (BNVA) | payer MEDICARE, MEDICAID, SELFPAY | PROVIDERS: PCP Family Medicine; Visit Provider Thoracic Surgery (Cardiothoracic Vascular Surgery) | DX: I96 Gangrene, not elsewhere classified (principal); L97.511 Non-pressure chronic ulcer of other part of right foot limited to breakdown of skin; L89.151 Pressure ulcer of sacral region, stage 1; S80.822D Blister (nonthermal), left lower leg, subsequent encounter; X58.XXXD Exposure to other specified factors, subsequent encounter | CPT/HCPCS: 97597; 97598 ==

== ENCOUNTER → 2024-01-07 13:05 | Outpatient (BNVA) | payer MEDICARE, MEDICAID, SELFPAY | PROVIDERS: PCP Family Medicine; Visit Provider Thoracic Surgery (Cardiothoracic Vascular Surgery) | DX: E11.52 Type 2 diabetes mellitus with diabetic peripheral angiopathy with gangrene (principal); E11.621 Type 2 diabetes mellitus with foot ulcer; L97.511 Non-pressure chronic ulcer of other part of right foot limited to breakdown of skin; E11.622 Type 2 diabetes mellitus with other skin ulcer; L97.821 Non-pressure chronic ulcer of other part of left lower leg limited to breakdown of skin; L89.152 Pressure ulcer of sacral region, stage 2 | CPT/HCPCS: 97597; 97598; A6212; A6248 ==

== ENCOUNTER → 2024-01-14 13:49 | Outpatient (BNVA) | payer MEDICARE, MEDICAID, SELFPAY | PROVIDERS: PCP Family Medicine; Visit Provider Thoracic Surgery (Cardiothoracic Vascular Surgery) | DX: E11.52 Type 2 diabetes mellitus with diabetic peripheral angiopathy with gangrene (principal); E11.621 Type 2 diabetes mellitus with foot ulcer; L97.521 Non-pressure chronic ulcer of other part of left foot limited to breakdown of skin; E11.622 Type 2 diabetes mellitus with other skin ulcer; L97.821 Non-pressure chronic ulcer of other part of left lower leg limited to breakdown of skin; Z09 Encounter for follow-up examination after completed treatment for conditions other than malignant neoplasm | CPT/HCPCS: 97597; 97598 ==

== ENCOUNTER → 2024-01-22 14:42 | Outpatient (BNVA) | payer MEDICARE, MEDICAID, SELFPAY | PROVIDERS: PCP Family Medicine; Visit Provider Thoracic Surgery (Cardiothoracic Vascular Surgery) | DX: E11.52 Type 2 diabetes mellitus with diabetic peripheral angiopathy with gangrene (principal); E11.621 Type 2 diabetes mellitus with foot ulcer; L97.521 Non-pressure chronic ulcer of other part of left foot limited to breakdown of skin; E11.622 Type 2 diabetes mellitus with other skin ulcer; L97.821 Non-pressure chronic ulcer of other part of left lower leg limited to breakdown of skin | CPT/HCPCS: 97597; 97598; A6248 ==

== ENCOUNTER → 2024-01-29 15:05 | Outpatient (BNVA) | payer MEDICARE, MEDICAID, SELFPAY | PROVIDERS: PCP Family Medicine; Visit Provider Thoracic Surgery (Cardiothoracic Vascular Surgery) | DX: E11.52 Type 2 diabetes mellitus with diabetic peripheral angiopathy with gangrene (principal); E11.621 Type 2 diabetes mellitus with foot ulcer; L97.511 Non-pressure chronic ulcer of other part of right foot limited to breakdown of skin; E11.622 Type 2 diabetes mellitus with other skin ulcer; L97.821 Non-pressure chronic ulcer of other part of left lower leg limited to breakdown of skin | CPT/HCPCS: 97597; 97598 ==

== ENCOUNTER 2024-02-03 13:27 | Inpatient (IN) | payer MEDICARE, MEDICAID, SELFPAY ==
[2024-02-03] VITALS (17 sets, daily range): BP systolic 68–106; BP diastolic 39–76; PULSE 95–144; RESP 1–30; TEMP 37.1–37.8; O2SAT 91–100
--- NOTE | 2024-02-03 13:32 | XRR_ITS ---
PROCEDURE INFORMATION: Exam: XR Chest Exam date and time: 02/03/2024 1:39 PM Age: 68 years old Clinical indication: Shortness of breath TECHNIQUE: Imaging protocol: Radiologic exam of the chest. Views: 1 view. COMPARISON: [place] [id number] 10/13/2023 2:14 PM FINDINGS: Tubes, catheters and devices: There is a right internal jugular vein MediPort in good position. Lungs: Right lower lobe infiltrates concerning for pneumonia. The left lung is clear Pleural spaces: There is a small right pleural effusion. Suspected trace left pleural effusion. Heart/Mediastinum: Unremarkable. No cardiomegaly. Bones/joints: Unremarkable. XR/XR chest 1V portable [id number] IMPRESSION: 1. Right lower lobe infiltrates concerning for pneumonia. 2. Small right pleural effusion and possible trace left pleural effusion.
--- NOTE | 2024-02-03 13:33 | ECG_ITS ---
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 Measurements Intervals [place] Rate: 123 P: 246 HI: 113 QRS: 268 QRSD: 110 T: 69 QT: 321 QTc: 460 Interpretive Statements SINUS TACHYCARDIA RIGHT AXIS DEVIATION [QRS AXIS > 100] POSSIBLE RIGHT VENTRICULAR CONDUCTION DELAY [RSR (QR) IN V1/V2] MARKED T-WAVE ABNORMALITY, CONSIDER ANTERIOR ISCHEMIA [-0.5+ mV T-WAVE IN V3/V4] No previous ECG available for comparison Electronically Signed On 02-03-2024 15:28:13 CDT by Joaquin Nelson M.D. [email or web address]
--- NOTE | 2024-02-03 13:34 | ED_ITS ---
HPI - SOB/Dyspnea 2 General: Chief Complaint: Weakness Stated Complaint: SOB Time Seen by Provider: 02/03/24 13:31 History of Present Illness: HPI Narrative: 68-year-old man with a history of hypert ension, hyperlipidemia, COPD and type 2 diabetes who presents to the emergency room by ambulance from a clinic in [place] with shortness of breath. He says he has been worse for about 3 days now. He has swelling in his legs he says this is been present for some time they have been trying to get rid of it. No chest pain. No altered mental status. No focal motor deficits. He follows commands. He answers questions. Review of Systems 2 Narrative: Constitutional symptoms: Negative except as documented in HPI. Skin symptoms: Negative except as documented in HPI. Eye symptoms: Negative except as documented in HPI. ENMT symptoms: Negative except as documented in HPI. Respiratory symptoms: Negative except as documented in HPI. Cardiovascular symptoms: Negative except as documented in HPI. Gastrointestinal symptoms: Negative except as documented in HPI. Genitourinary symptoms: Negative except as documented in HPI. Musculoskeletal symptoms: Negative except as documented in HPI. Neurologic symptoms: Negative except as documented in HPI. Psychiatric symptoms: Negative except as documented in HPI. Endocrine symptoms: Negative except as documented in HPI. PFSH ED 2 PFSH: Medical History Hypertension Hyperlipidemia Refuses statin therapy. COPD (chronic obstructive pulmonary disease) Type 2 diabetes mellitus Surgical History History of dental surgery No pertinent past surgical history Family History Father CAD (coronary artery disease) Chronic kidney disease (CKD) Diabetes Mother Hypertension Stroke Heart attack Cancer breast Brother Cancer Both brothers have passed from cancer Social History Smoking and tobacco/nicotine status: current every day tobacco/nicotine user cigarettes Packs smoked per day: 2 Quit status (tobacco/nicotine): considering quitting Alcohol intake: current Alcohol intake frequency: 0-2 Drinks per Day Alcohol type: beer Substance/Drug Use: never Physical Exam 2 Narrative: EXAM NARRATIVE: General: Alert, ill appearing, sallow Skin: Warm, dry. Extensive bruising on his arms Head: Normocephalic, atraumatic. Neck: Supple, trachea midline. Eye: Extraocular movements are intact. Patient's right eyes shut and bulging somewhat. 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 Ears, nose, mouth and throat: mucosa moist. Cardiovascular: Regular, tachycardic, poor peripheral perfusion. 2+ pitting edema Respiratory: coarse breath sounds, mild tachypnea. Gastrointestinal: Soft, Nontender, Non distended Musculoskeletal: Normal ROM, no deformity. Neurological: Alert and oriented, No focal neurological deficit observed. Psychiatric: Cooperative, appropriate mood & affect. Course 2 Vital Signs: Vital signs: Vital Signs Temperature 98.8 F 02/03/24 13:31 Pulse Rate 130 H 02/03/24 16:00 Respiratory Rate 21 H 02/03/24 16:00 Blood Pressure 99/74 02/03/24 16:00 Pulse Oximetry 100 02/03/24 16:00 Oxygen Delivery Me thod Nasal Cannula 02/03/24 16:00 Oxygen Flow Rate 3 02/03/24 16:00 MDM - SOB/Dyspnea Medical Decision Making Differential diagnosis for patient with shortness of breath includes but is not limited to and based on the above HPI, review of systems and physical exam: Pneumonia. Bronchitis. Asthma or COPD with acute exacerbation. Acute coronary syndrome / [place]. Pulmonary embolism. Anxiety. Congestive heart failure. Viral infections including influenza and Covid-19. Atrial fibrillation. Anxiety. Pleural effusion. Pneumothorax. Workup: Lab work, chest X-ray and EKG ordered to evaluate, rule in and rule out above pathologies EKG: Time 1333. Rate 123. Nonspecific ST changes. junctional tachycardia, no ectopy, normal MS & QRS intervals, This was reviewed and interpreted by myself the ER physician at 1335 Repeat EKG: Time 1511. Rate 134. Nonspecific ST changes. junctional tachycardia, no ectopy, normal MS & QRS intervals, This was reviewed and interpreted by myself the ER physician at 1515. Chest x-ray: Possible pneumonia with a right pleural effusion. Port in place. This was reviewed and interpreted by myself the emergency room physician. I also reviewed the radiology report.. CT of the chest without contrast was ordered to further evaluate lungs more closely with an abnormal x-ray and to determine if there was a pneumonia or just an effusion. This shows 2 pleural effusions and some coronary disease but does not demonstrate any pneumonia. This was reviewed and interpreted by myself the emergency room physician. I also reviewed the radiology report. Lab Review: Laboratory results were reviewed and interpreted by myself the emergency room physician. Significant leukocytosis with white count of 22,000. Hemoglobin stable at 10. Platelets are low at 150. BUN and creatinine are slightly elevated at 15 and 1.4. This is slightly above his baseline. Urinalysis is clear. I reviewed the patient's medical record. Reexamination: Patient continues to be tachycardic and borderline hypotensive. I spoke with his at length about his medical history. She said his blood pressure is always in the 90s and the staff rn started him on some medication to help bring up his blood pressure. He does not however normally require oxygen. He is requiring 3 L as confirmed on his blood gas. He has poor peripheral perfusion and pulse oximetry is fairly inaccurate. He continues to remain alert. No focal motor deficits. Assessment and plan: Hypoxemic respiratory failure Pleural effusions Congestive heart failure Junctional tachycardia Hypotension Possible sepsis - with pleural effusions, hypoxemia leg swelling and a proBNP of 35,000 I am not ordering any fluids at this time. Particularly given I do have no clear source of sepsis. He does have a leukocytosis and a lactic acidosis. But urine is clear and there is no pneumonia on the CT scan. -Broad-spectrum antibiotics were administered. Meropenem and Zyvox were ordered prior to completion of all lab work. This would be renal protective and broad- spectrum. With known CKD -Sepsis quality measures. -Lactic acid with a reflex was ordered. -Blood cultures were ordered. -I am deferring further treatment to the hospitalist. I.e. fluids versus diuresis. Rate control. Continuation of antibiotics. -I discussed the patient with the hospitalist on-call who is admitting the patient. - Discussed findings and plan with patient. Answered any questions. - All laboratory values were reviewed and interpreted personally by myself, the ER physician - All imaging was reviewed and interpreted personally by myself, the ER physician. - Evaluation and treatment of this problem were appropriate in the emergency setting -I spent a total of >35 minutes of critical care time managing the patient, independent of any other practitioner. -The time involved in the performance of separately reportable procedures was not counted towards critical care time. Lab Data 02/03/24 13:40 02/03/24 13:40 Labs/Radiology: Radiology Impressions Chest X-Ray 02/03/24 13:32 IMPRESSION: 1. Right lower lobe infiltrates concerning for pneumonia. 2. Small right pleural effusion and possible trace left pleural effusion. Chest CT 02/03/24 14:06 IMPRESSION: 1. Moderate RIGHT and small LEFT pleural effusions. Compressive atelectasis at the lung bases secondary to the effusions. 2. No pulmonary mass or pneumonia. 3. Extensive dense atherosclerotic plaque within the coronary arteries and aorta. 4. Adenopathy none identified within the hilar regions or mediastinum. Lymph nodes would be difficult to visualize without IV contrast. Laboratory Results WBC 21.88 10^3/uL (3.29-11.43) H 02/03/24 13:40 RBC 2.94 10^6/uL (3.85-5.65) L 02/03/24 13:40 Hgb 10.00 g/dL (11.27-16.99) L 02/03/24 13:40 Hct 31.5 % (37-53) L 02/03/24 13:40 MCV 107.1 fl (82-101) H 02/03/24 13:40 MCH 34.0 pg (27-33) H 02/03/24 13:40 MCHC 31.7 g/dL (30-55) 02/03/24 13:40 RDW 17.4 % (12.1-15.1) H 02/03/24 13:40 Plt Count 150 10^3/cmm (157-399) L 02/03/24 13:40 MPV 11.6 fL (7.4-10.4) H 02/03/24 13:40 Neut % (Auto) 95.5 % 02/03/24 13:40 Lymph % (Auto) 1.0 % 02/03/24 13:40 Starr % (Auto) 2.3 % 02/03/24 13:40 Eos % (Auto) 0.0 % 02/03/24 13:40 Baso % (Auto) 0.2 % 02/03/24 13:40 Neut # (Auto) 20.89 10^3/uL (1.8-7.7) H 02/03/24 13:40 Lymph # (Auto) 0.2 10^3/uL (0.8-4.8) L 02/03/24 13:40 Starr # (Auto) 0.5 10^3/uL (0.2-0.9) 02/03/24 13:40 Eos # (Auto) 0.0 10^3/uL (0.0-0.8) 02/03/24 13:40 Baso # (Auto) 0.0 10^3/uL (0.0-0.1) 02/03/24 13:40 Nucleated RBC % (auto) 0 % 02/03/24 13:40 Nucleated RBCs # 0.0 /100WBC 02/03/24 13:40 PT 20.60 SECONDS (12.1-14.9) H 02/03/24 13:40 INR 1.70 (0.8-1.2) H 02/03/24 13:40 APTT 34.1 SECONDS (23.9-36.7) 02/03/24 13:40 Specimen Type Arterial 02/03/24 14:55 Sample Site Radial, left 02/03/24 14:55 ABG pH 7.45 (7.35-7.45) 02/03/24 14:55 ABG pCO2 32.7 mmHg (35-45) L 02/03/24 14:55 ABG pO2 48.3 mmHg (80.0-100.0) L 02/03/24 14:55 ABG PO2/FiO2 Ratio 230 02/03/24 14:55 ABG HCO3 22.6 mmol/L (22-26) 02/03/24 14:55 ABG O2 Saturation 85.0 02/03/24 14:55 ABG Base Excess -1.1 mmol/L (-2.0-2.0) 02/03/24 14:55 Dom Test Pos 02/03/24 14:55 A-a O2 Gradient 7.9 mmHg (5-10) 02/03/24 14:55 Hematocrit 29.7 % (42-52) L 02/03/24 14:55 Hgb O2 Saturation 82.7 % (95-100) L 02/03/24 14:55 Carboxyhemoglobin 2.7 %THgb (0.4-20.1) 02/03/24 14:55 Methemoglobin 0.1 % (0.4-1.5) L 02/03/24 14:55 Total Hemoglobin 9.7 g/dL (14-18) L 02/03/24 14:55 Sodium 135.0 mmol/L (131-143) 02/03/24 14:55 Potassium 4.6 mmol/L (3.5-5.0) 02/03/24 14:55 Glucose 183.0 mg/dL (70-115) H 02/03/24 14:55 Ionized Calcium 1.1 mmol/L (1.1-1.4) 02/03/24 14:55 O2 Delivery Device Room air 02/03/24 14:55 FiO2 21.0 % 02/03/24 14:55 Computer Programming Manager ID Cak 02/03/24 14:55 Sodium 138 mmol/L (136-145) 02/03/24 13:40 Potassium 4.4 mmol/L (3.5-5.1) 02/03/24 13:40 Chloride 96 mmol/L (98-107) L 02/03/24 13:40 Carbon Dioxide 24 mmol/L (22-29) 02/03/24 13:40 Anion Gap 22.4 (5-19) H 02/03/24 13:40 BUN 15 mg/dL (8-23) 02/03/24 13:40 Creatinine 1.4 mg/dL (0.7-1.2) H 02/03/24 13:40 GFR Calculation 50.5 mL/min (90-130) L 02/03/24 13:40 Glucose 161 mg/dL (65-115) H 02/03/24 13:40 Calculated Osmolality 290 mOsm/kg (285-295) 02/03/24 13:40 Lactic Acid 4.3 mmol/L (0.5-2.2) H* 02/03/24 13:40 Calcium 9.0 mg/dL (8.5-10.5) 02/03/24 13:40 Total Bilirubin 1.2 mg/dL (0.15-1.2) 02/03/24 13:40 AST 15 U/L (0-40) 02/03/24 13:40 ALT 12 U/L (0-41) 02/03/24 13:40 Alkaline Phosphatase 67 U/L (40-130) 02/03/24 13:40 Ammonia 28 umol/L (16-60) 02/03/24 13:40 Troponin T Baseline 86 ng/L (0-15) H 02/03/24 13:40 Troponin T 120 Minute 88.35 ng/L (0-15) H 02/03/24 15:35 Delta Troponin T 2.35 ABS# (0-10) 02/03/24 15:35 C-Reactive Protein 26.3 mg/L (0.0-4.9) H 02/03/24 13:40 NT-Pro-B Natriuret Pep 44953 pg/mL (0-125) H 02/03/24 13:40 Total Protein 6.0 g/dL (6.6-8.7) L 02/03/24 13:40 Albumin 3.5 g/dL (3.5-5.2) 02/03/24 13:40 Globulin 2.5 g/dL (1.3-4.6) 02/03/24 13:40 Urine Color Yellow (Yellow) 02/03/24 14:59 Urine Appearance Clear (CLEAR) 02/03/24 14:59 Urine pH 5 (5-7) 02/03/24 14:59 Ur Specific [place] 1.010 (1.005-1.030) 02/03/24 14:59 Urine Protein Trace (Negative) 02/03/24 14:59 Urine Glucose (UA) Norm (Normal) 02/03/24 14:59 Urine Ketones Negative (Negative) 02/03/24 14:59 Urine Blood Neg (Negative) 02/03/24 14:59 Urine Nitrate Negative (Negative) 02/03/24 14:59 Urine Bilirubin Neg (Negative) 02/03/24 14:59 Urine Urobilinogen Norm mg/dL (Negative) 02/03/24 14:59 Ur Leukocyte Esterase Negative (Negative) 02/03/24 14:59 Urine RBC None /hpf (0-2) 02/03/24 14:59 Urine WBC None /hpf (0-5) 02/03/24 14:59 Ur Squamous Epith Cells Rare /hpf (0-5) 02/03/24 14:59 Amorphous Sediment Not Reportable 02/03/24 14:59 Urine Bacteria Trace /hpf (NONE) 02/03/24 14:59 All radiology interpretation(s) finalized by discharge Discharge Plan Discharge Patient Disposition: Admitted As Inpatient Clinical Impression: Hypoxemia, Congestive heart failure, Sepsis, Pleural effusion, bilateral, Chronic kidney disease, Tachycardia Condition: Critical Coding Level of Care Code ED Slasher Tender Helper for Edison Burris
[2024-02-03 13:48] LABS: Basophils % 0.2 %; Hematocrit 31.5 % (37-53); Lymphocytes # 0.2 10^3/uL (0.8-4.8); Mean Corpuscular HGB Conc 31.7 g/dL (30-55); Mean Corpuscular Volume 107.1 fl (82-101); Mean Platelet Volume 11.6 fL (7.4-10.4); Monocytes # 0.5 10^3/uL (0.2-0.9); Monocytes % 2.3 %; Neutrophils # 20.89 10^3/uL (1.8-7.7); Neutrophils % 95.5 %; Nucleated Red Blood Cells % 0 %; Platelet Count 150 10^3/cmm (157-399); Red Blood Count 2.94 10^6/uL (3.85-5.65); Red Cell Distribution Width 17.4 % (12.1-15.1); White Blood Count 21.88 10^3/uL (3.29-11.43)
[2024-02-03 14:02] LABS: Partial Thromboplastin Time 34.1 SECONDS (23.9-36.7)
--- NOTE | 2024-02-03 14:06 | CT_ITS ---
WS: [id number] CT chest wo con [id number] HISTORY: abnormal chest xray TECHNIQUE: Axial imaging performed through the thorax. Coronal and sagittal reformats are submitted. All CT scans at [facility] use at least one of these dose optimization techniques: automated exposure control; mA and/or kV adjustment per patient size (includes targeted exams where dose is mat ched to clinical indication); or iterative reconstruction. CONTRAST: None DLP: 374.29 mGy.cm COMPARISON: Chest radiograph 02/03/2024 Lungs and central airway: Within the visualized aerated lungs no pulmonary mass or nodule. Compressiv e atelectasis at the lung bases due to small to moderate bilateral pleural effusions. Pleura: Moderate RIGHT and small layering LEFT pleural effusion. Heart and pericardium: Heart is moderately enlarged. Very dense coronary artery calcifications. Mediastinum and kimberley: Mediastinum and hilum are difficult to evaluate without IV contrast in this katlyn unt of fluid. It would be difficult to exclude adenopathy. 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 Moderate calcification throughout the thoracic aorta. Pulmonary artery is dilated. Chest wall and lower neck: No soft tissue masses. Upper abdomen: Mildly thickened adrenal glands. On this unenhanced exam no abnormality noted within t he visualized liver. Osseous structures: No destructive process. CT/CT chest wo con [id number] IMPRESSION: 1. Moderate RIGHT and small LEFT pleural effusions. Compressive atelectasis at the lung bases secondary to the effusions. 2. No pulmonary mass or pneumonia. 3. Extensive dense atherosclerotic plaque within the coronary arteries and aor ta. 4. Adenopathy none identified within the hilar regions or mediastinum. Lymph n odes would be difficult to visualize without IV contrast.
[2024-02-03 14:07] LABS: Lactic Sepsis W/Reflex 4.3 mmol/L (0.5-2.2)
[2024-02-03 14:08] LABS: Troponin(5th) Baseline 86 ng/L (0-15)
[2024-02-03 14:15] LABS: Alanine Aminotransferase 12 U/L (0-41); Albumin Level 3.5 g/dL (3.5-5.2); Alkaline Phosphatase 67 U/L (40-130); Ammonia 28 umol/L (16-60); Anion Gap 22.4 (5-19); Aspartate Amino Transferase 15 U/L (0-40); Blood Urea Nitrogen 15 mg/dL (8-23); C Reactive Protein 26.3 mg/L (0.0-4.9); Carbon Dioxide 24 mmol/L (22-29); Chloride 96 mmol/L (98-107); Globulin 2.5 g/dL (1.3-4.6); Glomerular Filtration Rate 50.5 mL/min (90-130); Glucose 161 mg/dL (65-115); Osmolality Calculated 290 mOsm/kg (285-295); Potassium 4.4 mmol/L (3.5-5.1); Sodium 138 mmol/L (136-145); Total Bilirubin 1.2 mg/dL (0.15-1.2)
[2024-02-03] MEDS: meropenem 500 mg SDV IVP (14:23)
[2024-02-03] MEDS: linezolid premix 600 MG/300 ML PREMIX 300 MG IV (14:23)
[2024-02-03 14:36] LABS: NT Pro B Type Natriuretic Pept 31667 pg/mL (0-125)
[2024-02-03 15:06] LABS: ABG PCO2 32.7 mmHg (35-45); ABG PH Result 7.45 (7.35-7.45); Alveolar-Arterial Oxygen Gradi 7.9 mmHg (5-10); Arterial Blood Gas Hematocrit 29.7 % (42-52); Base Excess ABG -1.1 mmol/L (-2.0-2.0); Blood Gas Allen Test Pos; Blood Gas Operator Identificat CAK; Blood Gas Sample Site Radial, left; Blood Gas Sample Type Arterial; Carboxyhemoglobin 2.7 %THgb (0.4-20.1); HCO3 ABG 22.6 mmol/L (22-26); HGB O2 Sat 82.7 % (95-100); Ionized Calcium Level - ABG 1.1 mmol/L (1.1-1.4); Methemoglobin 0.1 % (0.4-1.5); Oxygen Device ROOM AIR; PO2 ABG 48.3 mmHg (80.0-100.0); PO2 FiO2 Ratio Arterial Blood 230; Potassium Level - ABG 4.6 mmol/L (3.5-5.0); Total Hemoglobin 9.7 g/dL (14-18)
[2024-02-03 15:27] LABS: Bacteria Urine TRACE /hpf; Bilirubin Urine Neg (Negative); Blood Urine Neg (Negative); Glucose Urine UA Norm (Normal); Ketones Urine Negative (Negative); Leukocyte Esterase Urine Negative (Negative); Nitrate Urine Negative (Negative); Protein Urine Trace (Negative); Squamous Epithelial Cell Urine RARE /hpf (0-5); Urine Appearance Clear (CLEAR); Urine Color Yellow (Yellow); Urobilinogen Urine Norm (Negative); pH Urine 5 (5-7)
[2024-02-03 15:30] LABS: Reflex Lactate Order REFLEX LACTIC ORDERD
--- NOTE | 2024-02-03 15:33 | ECG_ITS ---
[facility] Test Date: 2024-02-03 Pat Name: Romain Montes Department: Room: Gender: Male Cloth Hand: : 1955 Requested By: Darya Mark Order Number: [id number] Esther MD: Joaquin Nelson M.D. Measurements Intervals [place] Rate: 134 P: 263 AK: 127 QRS: -82 QRSD: 119 T: 85 QT: 316 QTc: 473 Interpretive Statements SINUS TACHYCARDIA POSSIBLE RIGHT VENTRICULAR CONDUCTION DELAY [RSR (QR) IN V1/V2] MODERATE T-WAVE ABNORMALITY, CONSIDER ANTERIOR ISCHEMIA [-0.1+ mV T-WAVE IN V3/V4] Compared to ECG 02/03/2024 13:33:42 Right-axis deviation no longer present T-wave abnormality still present Possible ischemia still present Electronically Signed On 02-03-2024 15:29:29 CDT by Joaquin Nelson M.D. [id number]
--- NOTE | 2024-02-03 15:40 | PC.NURSE ---
assumed care from jackie perry @[phone]
[2024-02-03 15:57] LABS: Troponin 5 2HR 88.35 ng/L (0-15); Troponin 5 2HR Delta 2.35 ABS# (0-10)
--- NOTE | 2024-02-03 16:59 | USCV_ITS ---
Jyoti Romain Age: 68 Gender: M : 1955 Exam Date: 02/03/2024 19:25 Ordering Phys: Enoch Pate MD Technologist: DIANE Exam Location: [facility] [place] Indication: SOB, history HTN, HL, COPD, DM2. Patient is confused and marginally responsive in ICU-8. BP: 99 / 74 HR: 109 Rhythm: Atrial fibrillation Technical Quality: Adequate MEASUREMENTS (Male / Female) Normal Values 2D ECHO LV Diastolic Diameter PLAX 5.5 cm 4.2 - 5.9 / 3.9 - 5.3 cm IVS Diastolic Thickness 1.1 cm 0.6 - 1.0 / 0.6 - 0.9 cm IVS Systolic Thickness 1.2 cm LVPW Diastolic Thickness 0.7 cm 0.6 - 1.0 / 0.6 - 0.9 cm LVPW Systolic Thickness 0.7 cm LVOT Diameter 1.8 cm LV Ejection Fraction 2D Teich 24.9 % LV Ejection Fraction MOD 4C 32.1 % LV Ejection Fraction MOD 2C 17.1 % LV Ejection Fraction 2C AL 17.8 % LA Diameter 4.0 cm LA Sys Volume AL 89.7 cm cubed LA Sys Volume Index AL 52.0 cm cubed/m squared Aorta at Sinotubular Diameter 2.2 cm IVC Diameter 1.8 cm M-MODE LA Ao Ratio MM 1.1 AV Cusp Separation MM 1.4 cm DOPPLER AV Peak Velocity 115.0 cm/s LVOT Peak Velocity 30.0 cm/s AV Area Cont Eq vti 0.7 cm squared AV Area Cont Eq pk 0.6 cm squared MV Peak Velocity 90.0 cm/s MV Area PHT 4.4 cm squared Mitral E to A Ratio 0.0 TV Peak Velocity 325.0 cm/s TR Peak Velocity 339.0 cm/s TR Peak Gradient 46.0 mmHg TV Peak E Velocity 42.0 cm/s Right Atrial Pressure 10.0 mmHg Pulmonary Artery Systolic Pressu 56.0 mmHg PV Peak Velocity 86.0 cm/s FINDINGS Left Ventricle LV systolic function is normal in size. LV systolic function is severely reduced with EF of 20-25%. Severe global hypokinesis. Right Ventricle Moderately hypokinetic. Right Atrium Normal in size Left Atrium Dilated Mitral Valve Mitral valve is thickened. Moderate mitral regurgitation. Aortic Valve Aortic valve is thickened and calcified. Moderate to severe low flow-low gradient aortic valve stenosis. Doppler signal is not adequate. Aortic valve area ois calculated to be 0.73cm2. Tricuspid Valve Mild to moderate tricuspid regurgitation. RVSP is 55 to 60 mmHg. This is consistent with moderate pulmonary hypertension Pulmonic Valve Not well visualized. Pericardium Normal Aorta Normal in size IVC Dilated CONCLUSIONS LV systolic function is severely reduced with EF of 20-25% Moderately hypokinetic RV Left atrial dilation Moderate mitral regurgitation Aortic valve is thickened and calcified. Moderate to severe low flow-low gradient aortic valve stenosis. Doppler signal is not adequate. Aortic valve area ois calculated to be 0.73cm2. Recommend assessment with REBEL. Mild to moderate tricuspid regurgitation. Moderate pulmonary hypertension IVC is dilated No comparison studies are available. Joaquin Nelson MD (Electronically Signed) Final Date: 04 February 2024 11:07 S
--- NOTE | 2024-02-03 16:59 | USCV_ITS ---
Jyoti Romain Age: 68 Gender: M : 1955 Exam Date: 02/03/2024 18:55 Ordering Phys: Enoch Pate MD Technologist: DIANE Exam Location: [facility] [place] Indication: 2+ pitting edema bilateral lower extremities. HISTORY: 2+ pitting edema bilateral lower extremities. PROCEDURES: Venous duplex imaging was performed in bilateral lower extremities. The following venous structures were evaluated: common femoral vein, profunda vein, proximal portion of the greater saphenous vein, superficial femoral vein, and the popliteal vein. In addition, the posterior tibial veins were evaluated. FINDINGS: Normal 2-D Doppler and augmentation and compressibility throughout the lower extremity venous structures. Additional imaging through the proximal calf veins also reveals no thrombus. Limited evaluation of the greater saphenous vein is patent with no thrombus. CONCLUSIONS No DVT bilateral lower extremities. Dr. Ratna Mckenzie DO (Electronically Signed) Final Date: 04 February 2024 07:38 S
--- NOTE | 2024-02-03 17:01 | PM.HP ---
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 Currently patient is alert to person, to place, not to time he can follow commands he can answer questions, but tells me so weak and fatigued, at bedside helps with history taking. Patient reports a few day history of shortness of breath, fatigue, malaise, cough, episodes of confusion, he presented to his primary care provider, due to concerns for tachycardia, low O2 levels he was sent to [facility] for reevaluation Review of Systems Const: Reports: fever(s), chills, fatigue and malaise Eyes: Denies: change in vision Card: Denies: chest pain Resp: Reports: dyspnea GI: Denies: abdominal pain : Denies: flank pain or difficulty urinating Musc: Denies: neck pain or back pain Skin/Breast: Reports: rash Neuro: Denies: headache(s) Endo: Denies: polyuria Medications/Allergies Home Medications Medication Instructions Recorded Confirmed Last Taken Type aspirin 325 mg tablet 325 mg PO DAILY 02/29/20 02/03/24 Unknown History fluticasone propionate 50 1 spray intranasal DAILY PRN 05/20/23 02/03/24 Unknown Rx mcg/actuation nasal allergy symptoms #16 grams spray,suspension albuterol sulfate 90 mcg/actuation 2 puff inhalation QID PRN 09/16/23 02/03/24 Unknown Rx aerosol inhaler (ProAir HFA) shortness of breath or wheezing 30 days #18 grams fenofibrate nanocrystallized 48 mg 48 mg PO DAILY 90 days #90 tabs 09/16/23 02/03/24 Unknown Rx tablet food supplemt, lactose-reduced 0.1 1 ea PO DAILY 30 days #8,880 mL 10/07/23 02/03/24 Unknown Rx gram-1.18 kcal/mL oral liquid (Ensure Complete) alcohol swabs 1 pad topical TID PRN as needed to 10/16/23 02/03/24 Unknown Rx check blood sugar 30 days #100 ea amitriptyline 25 mg tablet 25 mg PO .at bedtime PRN sleep 30 10/16/23 02/03/24 Unknown Rx days #30 tabs apixaban 5 mg tablet (Eliquis) 5 mg PO BID 30 days #60 tabs 10/16/23 02/03/24 Unknown Rx blood-glucose meter (Blood Glucose #1 ea 10/16/23 02/03/24 Unknown Rx Monitoring kit) lancets #100 ea 10/16/23 02/03/24 Unknown Rx polyethylene glycol 3350 17 17 g PO BID PRN constipation #850 10/16/23 02/03/24 Unknown Rx gram/dose oral powder (Miralax) grams blood sugar diagnostic (Blood #50 ea 10/18/23 02/03/24 Unknown Rx Glucose Test strips) oxycodone 5 mg tablet 5 mg PO Q6H PRN pain 30 days #120 10/22/23 02/03/24 Unknown Rx tabs methocarbamol 750 mg tablet 750 mg PO TID PRN pain and 10/24/23 02/03/24 Unknown Rx stiffness 5 days #30 tabs alprazolam 0.25 mg tablet (Xanax) 0.25 mg PO BID for anxiety and 11/03/23 02/03/24 Unknown Rx prior to radiation 1 month #60 tabs insulin glargine 100 unit/mL (3 10 unit (0.1 mL) SUBCUT QAM #15 mL 11/10/23 02/03/24 Unknown Rx mL) subcutaneous pen (Basaglar KwikPen U-100 Insulin) metformin 1,000 mg tablet 1,000 mg PO BID PRN high blood 11/10/23 02/03/24 Unknown Rx sugar 90 days #90 tabs armhvhzx-czkzezzhe-mrdwbron 3.5 1 drp ophthalmic (eye) Q12H 12/16/23 02/03/24 Unknown Rx mg/mL-10,000 unit/mL-0.1% eye drops greenish discharge 2 weeks #5 mL furosemide 20 mg tablet 20 mg PO QAM 01/08/24 02/03/24 Unknown History metoprolol succinate 25 mg 25 mg PO DAILY 01/08/24 02/03/24 Unknown History tablet,extended release 24 hr Allergies Allergy/AdvReac Type Severity Reaction Status Date / Time No Known Allergies Allergy Verified 02/03/24 13:37 PFSH Acute PFSH: Medical History Hypertension Hyperlipidemia Refuses statin therapy. COPD (chronic obstructive pulmonary disease) Type 2 diabetes mellitus Surgical History History of dental surgery No pertinent past surgical history Family History Father CAD (coronary artery disease) Chronic kidney disease (CKD) Diabetes Mother Hypertension Stroke Heart attack Cancer breast Brother Cancer Both brothers have passed from cancer Social History Smoking and tobacco/nicotine status: current every day tobacco/nicotine user cigarettes Packs smoked per day: 2 Quit status (tobacco/nicotine): considering quitting Alcohol intake: current Alcohol intake frequency: 0-2 Drinks per Day Alcohol type: beer Substance/Drug Use: never Vitals/I&O/Wt Last Vital Signs Temp 98.8 F 02/03/24 13:31 Pulse 130 H 02/03/24 16:00 Resp 21 H 02/03/24 16:00 BP 99/74 02/03/24 16:00 Pulse Ox 100 02/03/24 16:00 O2 Del Method Nasal Cannula 02/03/24 16:00 O2 Flow Rate 3 02/03/24 16:00 Physical Exam Const: COMMON NORMALS: no acute distress EXAM LIMITATIONS: altered mental status ORIENTATION/CONSCIOUSNESS: Yes awake, Yes oriented to person, Yes oriented to place and Yes confused; not oriented to time Eye: COMMON NORMALS: Equal, round and reactive pupils present Lymph: LYMPHATIC: lymphadenopathy Chest: COMMONS NORMALS: normal inspection of the chest OTHER: port in place Resp: COMMON NORMALS: normal respiratory effort and No retractions EFFORT & INSPECTION: Yes tachypneic, Yes respiratory distress and Yes retractions AUSCULTATION: crackles and wheezes Cardio: COMMON NORMALS: no JVD, regular rate, regular rhythm, S1 normal heart sound present and S2 normal heart sound present RATE: regular rate and tachycardic RHYTHM: regular rhythm HEART SOUNDS: S1 normal heart sound present and S2 normal heart sound present GI: COMMON NORMALS: Normal to inspection, nondistended, normoactive bowel sounds present, Soft to palpation and non-tender : COMMON NORMALS: Yes no CVA tenderness Extremity: NARRATIVE EXTREMITY EXAM: Bilateral nonpitting edema, bilateral superficial skin infections lower extremity, no calf pain, no calf swelling Neuro: COMMON NORMALS: CN's II-XII intact bilaterally, moves all extremities and no focal motor deficits OTHER: Can follow basic neurologic testing such as squeezing my fingers, wiggling his toes able to smile for me, reports generalized weakness Sepsis: Is patient septic: Yes Focused sepsis exam performed: Yes Focused sepsis exam: dp/pt pulses barely palpabale, mild mottling bilaterale feet, cap refill>2seconds Date exam was performed: 02/03/24 Time exam was performed: 17:04 Data 02/03/24 13:40 02/03/24 13:40 Micro: Microbiology 02/03/24 14:28 Blood Culture - Preliminary Blood SPECIMEN COLLECTED 02/03/24 14:28 Blood Culture - Preliminary Blood SPECIMEN COLLECTED A&P Assessment and plan (1) Acute hypoxic respiratory failure: (2) Sepsis: (3) Aspiration pneumonia: (4) COPD exacerbation: (5) NSTEMI (non-ST elevated myocardial infarction): (6) CHF exacerbation: (7) Cellulitis: (8) Elevated lactic acid level: (9) Acute encephalopathy: Plan Acute encephalopathy ? Secondary to sepsis, aspiration pneumonia, cellulitis Acute hypoxic respiratory failure -Multifactorial -Secondary to sepsis, aspiration pneumonia -CHF exacerbation -COPD exacerbation -Currently in mild to moderate respiratory distress, intercostal retractions, nasal flaring, tachypnea, tachycardia ? Plan ? Monitor in the intensive care unit ? Vancomycin ? Meropenem ? Azithromycin ? 1 dose IV Lasix 40 mg, with albumin, with midodrine ? Levophed to maintain MAP greater than 65 ? Heparin drip ? Keep n.p.o. as high aspiration risk ? Precedex for agitation, 0.5 mg IV push in the emergency room ? Monitor respiratory status closely ? DuoNeb ? Budesonide ? Will consider BiPAP therapy ? Land catheter in place Sepsis secondary to aspiration pneumonia, cellulitis ? Sepsis features met given leukocytosis elevated lactic acid, elevated INR, respiratory failure, tachypnea, tachycardia, mild to moderate respiratory distress and nasal flaring, intercostal retractions, suprasternal retractions, source of infection aspiration pneumonia Cellulitis ? Antibiotics as above ? Venous ultrasound CHF exacerbation ? BNP over 30,000 ? Lasix therapy as above monitor creatinine monitor urine output, Land catheter in place Cardiac echo COPD as above Elevated lactic acid as above Aspiration pneumonia Aspiration precautions 6?keep n.p.o. NSTEMI Serial EKGs consult troponins, telemetry monitoring MICHELLE, secondary to sepsis monitor Malignant neoplasm of nasopharynx, status postchemotherapy, now on radiation therapy Goals of care discussion, extensive goals of care discussion with patient and , patient does not want to be resuscitated, does not want to be put on a ventilator, DNR/DNI ? Heparin drip for DVT prophylaxis Protonix for GI prophylaxis Patient is require ICU admission due to sepsis secondary to cellulitis, aspiration pneumonia, critically ill, prognosis is guarded, requiring proximal pressors in the ICU, Precedex drip for agitation broad-spectrum antibiotic therapy close monitoring, possible BiPAP therapy, diuretic therapy, has evidence of mild to moderate respiratory distress Attestations Medical Necessity Statement*: Patient requires hospitalization, inpatient, greater than 2 midnights, for sepsis secondary to aspiration pneumonia, acute hypoxic respiratory failure, acute respiratory distress, NSTEMI, CHF, COPD Coding Level of Care Code Critical Care >/= 30 minutes Critical care time (in minutes): 45 The high probability of a clinically significant, sudden or life threatening deterioration, as referenced in this documentation, required my full and direct attention, intervention and personal management. The critical care time shown is in addition to time spent performing any reported separately billable procedures and includes the following: [x] Data and vital sign review and interpretation [x] Patient assessment, examination and intervention [x] Medication orders and management [x] Patient/Family updates as able [x] Care Coordination and Documentation. Diagnoses Acute hypoxic respiratory failure J96.01 Sepsis A41.9 Aspiration pneumonia J69.0 COPD exacerbation J44.1 NSTEMI (non-ST elevated myocardial infarction) I21.4 CHF exacerbation I50.9 Cellulitis L03.90 Elevated lactic acid level R79.89 Acute encephalopathy G93.40
[2024-02-03 17:28] LABS: Lactic Acid level (Lactate) 7.7 mmol/L (0.5-2.2)
[2024-02-03] MEDS: LORazepam 2 mg/mL INJ 1 mL 0.5 MG IVP (17:29)
[2024-02-03 17:47] LABS: INR 1.81 (0.8-1.2)
[2024-02-03] MEDS: norepinephrine 4 MG/250 ML BAG 30 MG IV (17:51)
[2024-02-03] MEDS: albumin 25 G/100 ML BAG 60 G IV (18:28)
[2024-02-03] MEDS: methylPREDNISolone sod succ 125 mg/2 mL INJ IVP (18:33)
[2024-02-03] MEDS: azithromycin 500 MG in sodium chloride 0.9% 250 ML 250 MG IV (18:35)
[2024-02-03] MEDS: vancomycin 1,000 MG in sodium chloride 0.9% 250 ML 250 MG IV (20:11)
[2024-02-03] MEDS: heparin drip 25,000 UNIT/500 ML PREMIX 17.27 UNIT IV (20:12)
[2024-02-03] MEDS: heparin 5,000 unit/mL INJ 1 mL IV (20:14)
[2024-02-03] MEDS: dexmedeTOMIDine 0.9 % NaCL 400 MCG/100 ML PREMIX IV (20:14)
[2024-02-03] MEDS: budesonide 0.5 mg/2 mL Neb INHALATION (20:32)
[2024-02-03] MEDS: ipratropium-albuterol 3 mL Neb INHALATION (20:32)
--- NOTE | 2024-02-03 20:42 | ECG_ITS ---
[facility] Test Date: 2024-02-03 Pat Name: Romain Montes Department: Room: ICU08 Gender: Male [employer] Supervisor: : [id number] Requested By: Darya Mark Order Number: [id number] Esther MD: Joaquin Nelson M.D. Measurements Intervals [place] Rate: 116 P: -80 IL: 209 QRS: 263 QRSD: 134 T: 93 QT: 341 QTc: 475 Interpretive Statements SINUS TACHYCARDIA WITH OCCASIONAL SUPRAVENTRICULAR PREMATURE COMPLEXES RIGHT AXIS DEVIATION [QRS AXIS > 100] RIGHT BUNDLE BRANCH BLOCK [120+ ms QRS DURATION, UPRIGHT V1, 40+ ms S IN I/aVL/V4/V5/V6] INFERIOR MYOCARDIAL INFARCTION , PROBABLY OLD [40+ ms Q WAVE AND/OR ST/T ABNORMALITY IN II/aVF] Compared to ECG 02/03/2024 15:11:12 Right-axis deviation now present Right bundle-branch block now present Myocardial infarct finding now present T-wave abnormality no longer present Possible ischemia no longer present Electronically Signed On 02-04-2024 10:34:17 CDT by Joaquin Nelson M.D. [id number]
[2024-02-03 20:49] LABS: Adenovirus Not Detected (NOT DETECT); Chlamydia Pneumoniae Not Detected (NOT DETECT); Coronavirus 229E,HKU1,NL63,OC4 Not Detected (NOT DETECT); Human Metapneumovirus Not Detected (NOT DETECT); Human Rhinovirus/Enterovirus Not Detected (NOT DETECT); Influenza A Not Detected (NOT DETECT); Influenza A H1 Not Detected (NOT DETECT); Influenza A H1-2009 Not Detected (NOT DETECT); Influenza A H3 Not Detected (NOT DETECT); Influenza B Not Detected (NOT DETECT); Mycoplasma Pneumoniae Not Detected (NOT DETECT); Parainfluenza Virus Type 1 Not Detected (NOT DETECT); Parainfluenza Virus Type 2 Not Detected (NOT DETECT); Parainfluenza Virus Type 3 Not Detected (NOT DETECT); Parainfluenza Virus Type 4 Not Detected (NOT DETECT); Respiratory Syncytial Virus A Not Detected (NOT DETECT); Respiratory Syncytial Virus B Not Detected (NOT DETECT); SARS-COV-2 Not Detected (NOT DETECT)
[2024-02-03 21:09] LABS: Troponin 5 6HR 144.8 ng/L (0-15); Troponin 5 6HR Delta 58.8 ng/L (0-12)
[2024-02-03 21:27] LABS: Glucose Point of Care 167 mg/dL (70-110)
[2024-02-03] MEDS: insulin lispro 100 unit/1 mL SUBCUT (21:40)
[2024-02-03 22:35] LABS: Thyroid Stimulating Hormone 0.99 uIU/mL (0.27-4.20)
[2024-02-03 23:06] LABS: Cortisol Random 95.42 ug/dL (2.47-19.5)
[2024-02-04] VITALS (41 sets, daily range): BP systolic 77–105; BP diastolic 55–81; PULSE 79–103; RESP 16–28; TEMP 36.3–36.7; O2SAT 86–100
[2024-02-04] MEDS: meropenem 500 mg SDV IVP ×3 (01:11→17:36)
[2024-02-04] MEDS: norepinephrine 4 MG/250 ML BAG 22.5 MG IV ×2 (02:17→13:10)
[2024-02-04 02:42] LABS: Basophils % 0.1 %; Hematocrit 27.4 % (37-53); Lymphocytes # 0.3 10^3/uL (0.8-4.8); Lymphocytes % 1.6 %; Mean Corpuscular HGB Conc 31.4 g/dL (30-55); Mean Corpuscular Hemoglobin 34.3 pg (27-33); Mean Corpuscular Volume 109.2 fl (82-101); Mean Platelet Volume 11.9 fL (7.4-10.4); Monocytes # 0.4 10^3/uL (0.2-0.9); Monocytes % 2.1 %; Neutrophils # 16.84 10^3/uL (1.8-7.7); Neutrophils % 94.8 %; Nucleated Red Blood Cells % 0 %; Platelet Count 119 10^3/cmm (157-399); Red Blood Count 2.51 10^6/uL (3.85-5.65); Red Cell Distribution Width 17.6 % (12.1-15.1); White Blood Count 17.76 10^3/uL (3.29-11.43)
[2024-02-04 02:51] LABS: INR 2.46 (0.8-1.2)
[2024-02-04 03:01] LABS: Alanine Aminotransferase 42 U/L (0-41); Albumin Level 3.4 g/dL (3.5-5.2); Alkaline Phosphatase 58 U/L (40-130); Anion Gap 21.5 (5-19); Aspartate Amino Transferase 112 U/L (0-40); Blood Urea Nitrogen 25 mg/dL (8-23); Calcium 8.8 mg/dL (8.5-10.5); Carbon Dioxide 23 mmol/L (22-29); Chloride 97 mmol/L (98-107); Globulin 2.5 g/dL (1.3-4.6); Glomerular Filtration Rate 37.8 mL/min (90-130); Glucose 147 mg/dL (65-115); Magnesium 1.7 mg/dL (1.7-2.3); Osmolality Calculated 291 mOsm/kg (285-295); Phosphorus 3.5 mg/dL (2.5-4.5); Potassium 4.5 mmol/L (3.5-5.1); Sodium 137 mmol/L (136-145); Total Bilirubin 1.1 mg/dL (0.15-1.2); Total Protein 5.9 g/dL (6.6-8.7)
[2024-02-04 03:33] LABS: NT Pro B Type Natriuretic Pept > 70000 pg/mL (0-125)
[2024-02-04 07:24] LABS: Partial Thromboplastin Time 45.4 SECONDS (23.9-36.7)
[2024-02-04 07:24] LABS: Glucose Point of Care 135 mg/dL (70-110)
[2024-02-04] MEDS: budesonide 0.5 mg/2 mL Neb INHALATION (08:09)
[2024-02-04] MEDS: ipratropium-albuterol 3 mL Neb INHALATION ×3 (08:09→16:39)
[2024-02-04] MEDS: water for injection-sterile 10 ML 100 ML ×2 (09:05→17:37)
--- NOTE | 2024-02-04 09:54 | PC.PHAR ---
SPOUSE STATES PT NO LONGER TAKING FENOFIBRATE 48MG-SAYS IT HAS BEEN REPLACED WITH BUMETANIDE 1MG. SPOUSE ALSO STATES STOPPED FUROSEMIDE 20MG QAM. SPOUSE STATES 4 NEWER MEDICATIONS FROM DECEMBER HAVE BEEN DISCONTINUED. OLANZAPINE 5 MG QPM, CLONIDINE 0.1MG BID, AMLODIPIE 10MG DAILY, AND TELMISARTAN 80MG DAILY.
[2024-02-04] MEDS: sodium bicarbonate 8.4% 1 mEq/mL 50mL Syr 50 MEQ IVP (10:32)
[2024-02-04] MEDS: albumin 25 G/100 ML BAG 60 G IV (10:32)
[2024-02-04 12:15] LABS: Glucose Point of Care 173 mg/dL (70-110)
[2024-02-04] MEDS: insulin lispro 100 unit/1 mL SUBCUT (12:15)
[2024-02-04 13:26] LABS: Partial Thromboplastin Time 141.7 SECONDS (23.9-36.7)
--- NOTE | 2024-02-04 13:36 | P.CONIM_ITS ---
Providers/Reason For Consult 2 Consulting Physician/Specialty*: [facility]/Nephrology Reason for Consult*: MICHELLE Attending Physician: Enoch Pate MD Primary Care Provider: Danielle Maldonado MD History of Present Illness History of Present Illness Romain Montes is a 68 year old male Patient is a 68-year-old male with past medical history significant for oropharyngeal cancer status post chemo and radiation therapy, history of CHF, COPD, cardiac thrombus on chronic anticoagulation therapy sent to the emergency department due to shortness of breath cough fatigue and malaise. Patient was noted to be tachycardic and hypoxic in the ED and lab data significant for elevated WBC count of 21.8 thousand, MICHELLE with a creatinine of 1.4. Review of Systems 2 Narrative: NEGATIVE Medications/Allergies Home Medications Medication Instructions Recorded Confirmed Last Taken Type aspirin 325 mg tablet 325 mg PO QAM 02/29/20 02/04/24 02/03/24 History fluticasone propionate 50 1 spray intranasal DAILY PRN 05/20/23 02/04/24 Unknown Rx mcg/actuation nasal allergy symptoms #16 grams spray,suspension fenofibrate nanocrystallized 48 mg 48 mg PO DAILY 90 days #90 tabs 09/16/23 02/04/24 Unknown Rx tablet food supplemt, lactose-reduced 0.1 1 ea PO DAILY 30 days #8,880 mL 10/07/23 02/04/24 Unknown Rx gram-1.18 kcal/mL oral liquid (Ensure Complete) amitriptyline 25 mg tablet 25 mg PO .at bedtime PRN sleep 30 10/16/23 02/04/24 02/01/24 Rx days #30 tabs apixaban 5 mg tablet (Eliquis) 5 mg PO BID 30 days #60 tabs 10/16/23 02/04/24 02/03/24 Rx blood-glucose meter (Blood Glucose #1 ea 10/16/23 02/04/24 Unknown Rx Monitoring kit) lancets #100 ea 10/16/23 02/04/24 Unknown Rx polyethylene glycol 3350 17 17 g PO BID PRN constipation #850 10/16/23 02/04/24 Unknown Rx gram/dose oral powder (Miralax) grams blood sugar diagnostic (Blood #50 ea 10/18/23 02/04/24 Unknown Rx Glucose Test strips) oxycodone 5 mg tablet 5 mg PO Q6H PRN pain 30 days #120 10/22/23 02/04/24 Unknown Rx tabs alprazolam 0.25 mg tablet (Xanax) 0.25 mg PO BID for anxiety and 11/03/23 02/04/24 Unknown Rx prior to radiation 1 month #60 tabs insulin glargine 100 unit/mL (3 10 unit (0.1 mL) SUBCUT QAM #15 mL 11/10/23 02/04/24 Unknown Rx mL) subcutaneous pen (Basaglar KwikPen U-100 Insulin) metformin 1,000 mg tablet 1,000 mg PO BID PRN high blood 11/10/23 02/04/24 02/03/24 Rx sugar 90 days #90 tabs fqcwrjmu-leboqihyj-ppmplkzq 3.5 1 drp ophthalmic (eye) Q12H 12/16/23 02/04/24 Unknown Rx mg/mL-10,000 unit/mL-0.1% eye drops greenish discharge 2 weeks #5 mL furosemide 20 mg tablet 20 mg PO QAM 01/08/24 02/04/24 Unknown History metoprolol succinate 25 mg 25 mg PO DAILY 01/08/24 02/04/24 02/03/24 History tablet,extended release 24 hr albuterol sulfate 90 mcg/actuation 2 puff inhalation QID PRN 02/04/24 02/04/24 Unknown History aerosol inhaler Shortness Of Breath bumetanide 1 mg tablet 1 mg PO BID 02/04/24 02/04/24 02/03/24 History Allergies Allergy/AdvReac Type Severity Reaction Status Date / Time No Known Allergies Allergy Verified 02/03/24 13:37 Current Medications Generic Name Dose Route Start Last Admin Trade Name Freq PRN Reason Stop Dose Admin Albuterol/Ipratropium 3 ml 02/03/24 20:00 02/04/24 11:24 Ipratropium-Albuterol 3 Ml Neb INHALATION 3 ml QID.RESPIRATORY ROGELIO Administration Budesonide 0.5 mg 02/03/24 20:00 02/04/24 08:09 Budesonide 0.5 Mg/2 Ml Neb INHALATION 0.5 mg BID.RESPIRATORY ROGELIO Administration Heparin Sodium (Porcine) 0 unit 02/03/24 17:40 02/03/24 20:14 Heparin 5,000 Unit/Ml Inj 1 Ml IV 3,100 unit PRN PRN Administration Heparin weight-base protocol Protocol Dexmedetomidine/Sodium Chloride 400 mcg in 100 mls @ 0 mls/hr 02/03/24 17:15 02/04/24 09:05 Precedex IV 0.1 mcg/kg/hr .Q0M ROGELIO 1.54 mls/hr Titration Protocol Per Protocol Heparin Sodium/Sodium Chloride 25,000 unit in 500 mls @ 0 mls/hr 02/03/24 17:40 02/04/24 07:44 Heparin Drip IV 13.78 unit/kg/hr .Q0M ROGELIO 17 mls/hr Titration Protocol Per Protocol Azithromycin 500 mg/ Sodium 250 mls @ 250 mls/hr 02/03/24 17:40 02/03/24 19:55 Chloride IV Infused Q24H ROGEILO Infusion Protocol Norepinephrine Bitartrate 4 mg in 250 mls @ 0 mls/hr 02/03/24 17:40 02/04/24 13:10 Levophed IV 6 mcg/min .Q0M ROGELIO 22.5 mls/hr Administration Protocol Per Protocol Vancomycin HCl 1,000 mg/ 250 mls @ 250 mls/hr 02/03/24 18:00 02/03/24 22:55 Sodium Chloride IV Infused Q24H ROGELIO Infusion Albumin Human 25 g in 100 mls @ 60 mls/hr 02/04/24 10:00 02/04/24 11:04 Albumin IV Infused Q12H ROGELIO Infusion Insulin Human Lispro 0 unit 02/03/24 18:00 02/04/24 12:15 Insulin Lispro 100 Unit/1 Ml SUBCUT 2 unit TIDWM ROGELIO Administration Protocol Meropenem 500 mg 02/04/24 01:00 02/04/24 09:00 Meropenem 500 Mg Sdv IVP 500 mg Q8H ROGELIO Administration Protocol Midodrine 10 mg 02/03/24 17:40 02/04/24 10:46 Midodrine 5 Mg Tablet PO Not Given Q8H ROGELIO PFSH Acute 2 PFSH: Medical History Hypertension Hyperlipidemia Refuses statin therapy. COPD (chronic obstructive pulmonary disease) Type 2 diabetes mellitus Surgical History History of dental surgery No pertinent past surgical history Family History Father CAD (coronary artery disease) Chronic kidney disease (CKD) Diabetes Mother Hypertension Stroke Heart attack Cancer breast Brother Cancer Both brothers have passed from cancer Social History Smoking and tobacco/nicotine status: current every day tobacco/nicotine user cigarettes Packs smoked per day: 2 Quit status (tobacco/nicotine): considering quitting Alcohol intake: current Alcohol intake frequency: 0-2 Drinks per Day Alcohol type: beer Substance/Drug Use: never Vitals/I&O/Wt Last Vital Signs Temp 97.4 F L 02/04/24 07:47 Pulse 89 02/04/24 13:00 Resp 23 H 02/04/24 13:00 BP 91/69 02/04/24 13:00 Pulse Ox 98 02/04/24 13:00 O2 Del Method Room Air 02/04/24 13:00 O2 Flow Rate 1 02/03/24 18:00 02/03/24 02/04/24 02/04/24 22:59 06:59 14:59 Intake Total 1044.042 / 1044.042 243.798 / 1287.840 399.376 / 399.376 Output Total 250 / 250 Balance 1044.042 / 1044.042 -6.202 / 1037.840 399.376 / 399.376 Weight last 48 hrs Weight 62.959 kg Weight 61.689 kg Physical Exam 2 Narrative: SOMNOLENT HEENT S1S2 RRR LUNGS CLEAR NO EDEMA Data 02/04/24 02:34 02/04/24 02:34 Micro: Microbiology 02/03/24 14:28 Blood Culture - Preliminary Blood Streptococcus species 02/03/24 14:28 Blood Culture - Preliminary Blood SPECIMEN COLLECTED A&P Assessment and plan (1) Chronic kidney disease: (2) MICHELLE (acute kidney injury): Plan 1. Acute kidney injury: Baseline creatinine was normal in September but recently noted to have elevated creatinine in the mid 1 range. Patient presented with a creatinine of 1.4 worsened to 1.8 , oliguric. Unclear if patient has received any contrast studies recently as outpatient. Likely has ATN in the setting of acute infection with some prerenal component due to poor p.o. intake -Currently on pressors -No acute indication for dialysis today, and patient is not a good long-term dialysis candidate due to overall frailty and underlying malignancy -Discussed with patient's at bedside re options of temporary HD VS conservative management 2. Sepsis , on pressors 3. H./o Oropharyngeal cancer - s/p Chemo and radiation 4. Anemia Pt evaluated using audio visual cart Time spent 30 min Consult Attestations 2 Medical Necessity Statement: per hernán Coding Level of Care Code Acute Code for g Fwd Diagnoses Chronic kidney disease N18.9 MICHELLE (acute kidney injury) N17.9
[2024-02-04 13:59] LABS: Anion Gap 28.4 (5-19); Blood Urea Nitrogen 30 mg/dL (8-23); Calcium 8.7 mg/dL (8.5-10.5); Carbon Dioxide 19 mmol/L (22-29); Chloride 93 mmol/L (98-107); Creatinine Clr Calc Pharmacy 29.8011; Glomerular Filtration Rate 28.5 mL/min (90-130); Glucose 165 mg/dL (65-115); Osmolality Calculated 290 mOsm/kg (285-295); Potassium 5.4 mmol/L (3.5-5.1); Sodium 135 mmol/L (136-145)
[2024-02-04 14:16] LABS: Troponin T (5th) Once 309 ng/L (0-15)
--- NOTE | 2024-02-04 15:59 | PM.PN ---
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 Blood cultures positive for streptococcal species ? NSTEMI, cardiac echocardiogram shows EF of 20 to 25% ? Patient's is at bedside, had a detailed discussion with patient's patient currently has multiorgan failure from septic shock likely secondary to streptococcal bacteremia with pneumonia, NSTEMI, EF down to 20 to 25%, respiratory failure and encephalopathy evidence of developing shock liver, acute renal failure, with deconditioned status at baseline with underlying malignancy, immunocompromise state -Currently his status is critical, prognosis is poor given his decline in functional state ? Currently on Levophed, blood pressures are responsive, -We discussed interventions are possible to help with his respiratory failure he is developing fluid overload, BNP over 70,000 ? We discussed risk and benefits of dialysis, temporary dialysis, is not a good long-term candidate for dialysis but short-term dialysis would help with electrolyte abnormalities, would help with fluid overload ? Discussed risk and benefits of temporary dialysis, she tells me that she is going to think about it, will let us know ? Spoke to nephrology, will consult Vitals/I&O/Wt Last Vital Signs Temp 97.4 F L 02/04/24 07:47 Pulse 89 02/04/24 13:00 Resp 23 H 02/04/24 13:00 BP 91/69 02/04/24 13:00 Pulse Ox 98 02/04/24 13:00 O2 Del Method Room Air 02/04/24 13:00 O2 Flow Rate 1 02/03/24 18:00 02/04/24 02/04/24 02/04/24 06:59 14:59 22:59 Intake Total 243.798 / 1287.840 507.326 / 507.326 Output Total 250 / 250 Balance -6.202 / 1037.840 507.326 / 507.326 Weight last 48 hrs Weight 62.959 kg Weight 61.689 kg Physical Exam Const: COMMON NORMALS: no acute distress EXAM LIMITATIONS: altered mental status GENERAL APPEARANCE: ill appearing and frail appearing ORIENTATION/CONSCIOUSNESS: Yes awake, Yes confused and Yes patient obtunded; not oriented to person, not oriented to place and not oriented to time Eye: COMMON NORMALS: Equal, round and reactive pupils present PUPIL: Yes Equal, round and reactive pupils present Neck/C-Spine: COMMON NORMALS: no lymphadenopathy Resp: EFFORT & INSPECTION: Yes abnormal respiratory pattern, Yes tachypneic, Yes respiratory distress and Yes retractions AUSCULTATION: crackles and wheezes Cardio: COMMON NORMALS: regular rhythm, S1 normal heart sound present and S2 normal heart sound present RATE: tachycardic RHYTHM: regular rhythm HEART SOUNDS: S1 normal heart sound present and S2 normal heart sound present GI: COMMON NORMALS: Normal to inspection, nondistended, normoactive bowel sounds present Extremity: COMMON NORMALS: no calf tenderness and no pedal edema Neuro: SENSORIUM/ORIENTATION: No oriented to person, No oriented to place and No oriented to time Data 02/04/24 02:34 02/04/24 12:50 Micro: Microbiology 02/03/24 14:28 Blood Culture - Preliminary Blood NEGATIVE TO DATE 02/03/24 14:28 Blood Culture - Preliminary Blood Streptococcus species A&P Assessment and plan (1) Acute hypoxic respiratory failure: (2) Sepsis: (3) Aspiration pneumonia: (4) COPD exacerbation: (5) NSTEMI (non-ST elevated myocardial infarction): (6) CHF exacerbation: (7) Cellulitis: (8) Elevated lactic acid level: (9) Acute encephalopathy: (10) Bacteremia due to Streptococcus: (11) Septic shock: (12) Pneumonia: Plan Acute encephalopathy ? Secondary to sepsis, aspiration pneumonia, cellulitis Streptococcal bactremia -10/15 blood cultures positive -repeat blood cultures tomorrow -on antibiotics as below Acute hypoxic respiratory failure -Multifactorial -Secondary to sepsis, aspiration pneumonia -CHF exacerbation -COPD exacerbation -Currently in mild to moderate respiratory distress, intercostal retractions, nasal flaring, tachypnea, tachycardia ? Plan ? Monitor in the intensive care unit ? Vancomycin ? Meropenem ? Azithromycin ? albumin, with midodrine ? currently requiring Levophed to maintain MAP greater than 65 ? Heparin drip ? Keep n.p.o. as high aspiration risk ? Precedex for agitation, ? Monitor respiratory status closely ? DuoNeb ? Budesonide ? Will consider BiPAP therapy ? Land catheter in place Sepsis secondary to aspiration pneumonia, cellulitis, with septic shock -currently on levophed ? Sepsis features met given leukocytosis elevated lactic acid, elevated INR, respiratory failure, tachypnea, tachycardia, mild to moderate respiratory distress and nasal flaring, intercostal retractions, suprasternal retractions, source of infection aspiration pneumonia Cellulitis ? Antibiotics as above ? Venous ultrasound WNL CHF exacerbation ? BNP over 30,000 ? Lasix therapy as above monitor creatinine monitor urine output, Land catheter in place Cardiac echo CONCLUSIONS LV systolic function is severely reduced with EF of 20-25% Moderately hypokinetic RV Left atrial dilation Moderate mitral regurgitation Aortic valve is thickened and calcified. Moderate to severe low flow-low gradient aortic valve stenosis. Doppler signal is not adequate. Aortic valve area ois calculated to be 0.73cm2. Recommend assessment with REBEL. Mild to moderate tricuspid regurgitation. Moderate pulmonary hypertension IVC is dilated No comparison studies are available. COPD as above Elevated lactic acid as above Aspiration pneumonia Aspiration precautions 6?keep n.p.o. 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 Heparin drip for DVT prophylaxis Protonix for GI prophylaxis Attestations Medical Necessity Statement*: Patient requires hospitalization, inpatient, greater than 2 midnights, for streptococcal bacteremia, acute respiratory failure, pneumonia, NSTEMI, acute renal failure, multiorgan failure, deconditioned state, septic shock, sepsis Coding Level of Care Code Critical Care >/= 30 minutes Critical care time (in minutes): 45 The high probability of a clinically significant, sudden or life threatening deterioration, as referenced in this documentation, required my full and direct attention, intervention and personal management. The critical care time shown is in addition to time spent performing any reported separately billable procedures and includes the following: [x] Data and vital sign review and interpretation [x] Patient assessment, examination and intervention [x] Medication orders and management [x] Patient/Family updates as able [x] Care Coordination and Documentation. Diagnoses Acute hypoxic respiratory failure J96.01 Sepsis A41.9 Aspiration pneumonia J69.0 COPD exacerbation J44.1 NSTEMI (non-ST elevated myocardial infarction) I21.4 CHF exacerbation I50.9 Cellulitis L03.90 Elevated lactic acid level R79.89 Acute encephalopathy G93.40 Bacteremia due to Streptococcus R78.81; B95.5 Septic shock A41.9; R65.21 Pneumonia J18.9
--- NOTE | 2024-02-04 16:35 | PC.NURSE ---
Patient handed off to Carlos Vidal RN.
[2024-02-04] MEDS: azithromycin 500 MG in sodium chloride 0.9% 250 ML 250 MG IV (17:36)
[2024-02-04 18:07] LABS: Partial Thromboplastin Time 105.7 SECONDS (23.9-36.7)
[2024-02-04 18:13] LABS: Glucose Point of Care 127 mg/dL (70-110)
--- NOTE | 2024-02-04 19:40 | PC.NURSE ---
Addendum entered by Jacob Mary RN 02/04/24 20:18: This nurse along with AME Zavaleta confirmed the patient's TOD at 1916 by checking radial and carotid pulses, finding there was none. Patient was also auscultated for breath sounds but none where present. Original Note: Patient : Patient started going bradycardic, apneic and unresponsive. Pulse was very faint. Dr. Dang was notified and was called to come back in. Patient then went into PEA and lost a pulse. At 1916 patient's rhythm went asystole and TOD was verified via auscultation of apical pulse with a second nurse Jacob MCCLOUD. Dr. Dang and Bilingual In[employer] notified. [facility] notified. currently at bedside.
--- NOTE | 2024-02-04 21:47 | PC.NURSE ---
Addendum entered by Meghann Mckenzie RN 02/04/24 22:02: [facility] apprenticeship training representative called and stated that patient is not a candidate for eye donation. Original Note: Ines from [facility] called and stated that patient is not a candidate for organ donation. Awaiting call from [employer].
--- NOTE | 2024-02-04 23:02 | PC.NURSE ---
Patient transferred to [facility] at 2300. [facility] called and will burr picker body around 0700.
--- NOTE | 2024-02-05 08:14 | PM.DDS ---
Discharge Providers DDS Date of Admission: 02/03/24 16:40 Date Summary Completed: 02/05/24 Attending Provider at Admission: Enoch Pate MD Attending Provider at Discharge: Enoch Pate MD Primary Care Provider: Danielle Maldonado MD DS Diagnoses Hospital Diagnoses (1) Acute hypoxic respiratory failure: (2) Sepsis: (3) Aspiration pneumonia: (4) COPD exacerbation: (5) NSTEMI (non-ST elevated myocardial infarction): (6) CHF exacerbation: (7) Cellulitis: (8) Elevated lactic acid level: (9) Acute encephalopathy: (10) Bacteremia due to Streptococcus: (11) Septic shock: (12) Pneumonia: Reason for Visit Reason for Visit SOB Summary Additional Data Advance directives?: No Discharge Plan Discharge Patient Disposition: Condition: Critical Probable Cause of Probable cause of : Cardiac arrest Coding Level of Care Code Acute Code for [facility] Fwd Diagnoses Acute hypoxic respiratory failure J96.01 Sepsis A41.9 Aspiration pneumonia J69.0 COPD exacerbation J44.1 NSTEMI (non-ST elevated myocardial infarction) I21.4 CHF exacerbation I50.9 Cellulitis L03.90 Elevated lactic acid level R79.89 Acute encephalopathy G93.40 Bacteremia due to Streptococcus R78.81; B95.5 Septic shock A41.9; R65.21 Pneumonia J18.9
== END 2024-02-04 19:17 | disposition expired | DRG 871 ==
LOC: ER 16:44 → ICU 18:22
PROVIDERS: Internal Medicine; Admitting Provider Family Medicine; Emergency Provider Emergency Medicine; PCP Family Medicine; Visit Provider Family Medicine
DX: A40.9 Streptococcal sepsis, unspecified (principal); G93.41 Metabolic encephalopathy; R65.21 Severe sepsis with septic shock; N17.0 Acute kidney failure with tubular necrosis; J96.01 Acute respiratory failure with hypoxia; K72.00 Acute and subacute hepatic failure without coma; I21.4 Non-ST elevation (NSTEMI) myocardial infarction; J69.0 Pneumonitis due to inhalation of food and vomit; J18.9 Pneumonia, unspecified organism; I50.23 Acute on chronic systolic (congestive) heart failure; L03.116 Cellulitis of left lower limb; L03.115 Cellulitis of right lower limb; I13.0 Hypertensive heart and chronic kidney disease with heart failure and stage 1 through stage 4 chronic kidney disease, or unspecified chronic kidney disease; J44.0 Chronic obstructive pulmonary disease with (acute) lower respiratory infection; J44.1 Chronic obstructive pulmonary disease with (acute) exacerbation; E78.5 Hyperlipidemia, unspecified; F17.210 Nicotine dependence, cigarettes, uncomplicated; Z66 Do not resuscitate; D64.9 Anemia, unspecified; N18.9 Chronic kidney disease, unspecified; E11.22 Type 2 diabetes mellitus with diabetic chronic kidney disease; C11.9 Malignant neoplasm of nasopharynx, unspecified
CPT/HCPCS: 36415; 36416; 36591; 36600; 71045; 71250; 80048; 80051; 80053; 81001; 82140; 82330; 82533; 82805; 82962; 83605; 83735; 83880; 84100; 84443; 84484; 85025; 85610; 85730; 86140; 87040; 87150; 87205; 87486; 87581; 87633; 93005; 93306; 93970; 94640; 96365; 96366; 96367; 96372; 96374; 96375; 99285; J0456; J1644; J1815; J2020; J2060; J2185; J2919; J3370; J7050; J7626; P9046